=== PATIENT | male | born 1930 | race Caucasian/White ===

== ENCOUNTER 2017-04-02 22:23 | Emergency (ER) | payer MEDICARE ==
--- OUTSIDE RECORDS SUMMARY | 2017-04-02 22:41 | XMS REPORT ---
:1930 External Reference #:[id number] Author Organization [facility] Address [address] [address] Phone [phone] Care Team Providers Name Role Phone Ced Brian MD Primary Care Physician Unavailable Payers Type Date Identification Numbers Payment Provider Subscriber Medicare Primary Effective: Policy Number: Medicare Russ Morrison 1995 [id number] PayID: [id number] [address] [place] [address] Medigap Part B Effective: Policy Number: [facility] Russ Carlson 2012 [id number] [facility] PayID: [id number] [address] [place] [address] Medigap Part B Effective: 2005 Policy Number: [facility] Russ Morrison [id number] Expires: 2012 PayID: [id number] [address] [address] [place] [address] Problems Date Description Provider Status Onset: 10/23/2016 Atrial flutter Mahin Sandoval M.D.,FACP Onset: 06/13/2009 Malignant melanoma of skin Halima Tidwell M.D. Active Onset: 06/25/2009 Chronic ischemic heart disease Halima Tidwell M.D. Active Onset: 06/25/2009 Late effects of cerebrovascular Halima Tidwell M.D. 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 AMRIT Aguayo Note: RT hemiparesis Family History Date Family Member(s) Problem(s) Comments Father due to Heart Disease () : (age 90 Years) Mother due to Natural Causes Siblings 1 Siblings 1 none now First Brother due to Suicide () : (1963) Second Brother due to Suicide Social History Type Date Description Comments Marital Status Lives With Daughter Occupation Retired Cigarette Use Former Cigarette Smoker ETOH Use Consumes 1 glass of wine per day Smoking Patient is a former smoker smoke cigarettes for 25 years, 1-1 1/2 ppd and quit August 31, 1979 Recreational Drug Use Denies Drug Use Daily Caffeine Consumes on average 2 cups of 2 in the morning 1 in the regular coffee per day evening Exercise Type/Frequency Does not exercise General Hx Text 2 daughters - one in town, retired from [employer], quit tobacco in 1979 (30 pk yr hx). Daughter is health care proxy. Allergies, Adverse Reactions, Alerts Date Description Reaction Status Severity Comments 01/23/2009 Antivert syncope active 12/13/2007 NKDA inactive Medications Medication Date Status Form Strength Qnty SIG Indications Ordering Provider Salud 10/23/ Active Tablets 2.5mg 60tab 1 tablet by I48.4 Js Aj s mouth twice DMarlon Brand, a day. M.D. blood thinner. Doxazosin 12/22/ Active Tablets 4mg 30tab 1 by mouth Ced Mesylate 2015 s every day Joanie Brian M.D.,FACP Finasteride 08/31/ Active Tablets 5mg 1 by mouth Other 2014 every day Ordering Provider Micky M2Emily 06/01/ Active Tablets ER 20Meq 90tab 1 by mouth Ced 2014 s every day Joanie Brian M.D.,FACP Ergocalciferol 03/06/ Active Capsules [id number] 12cap 1 cap by Alyssa Carrera 2012 s mouth every Joanie Brian, week M.D.,FACP Simvastatin 08/17/ Active Tablets 40mg 90tab 1 by mouth E78.5 Ced 2012 s every night Joanie Brian, at bedtime Ethel.Joanie,FACP Ramipril 06/22/ Active Capsules 10mg 180ca take 1 [id number] ps capsule Pachikara twice a day , M.DMarlon Furosemide 10/20/ Active Tablets 40mg 90tab take 1 Ced 2010 s tablet Joanie Brian, daily M.D.,FACP Lupron Depot 04/16/ Active Kit 7.5mg Im q4 mon Ced 2010 Joanie Brian M.D.,FACP Vitamin C 04/16/ Active Chewtabs 500mg 60uni 1 po qd Ced 2010 ts Joanie Brian M.D.,FACP Famotidine 12/12/ Active Tablets 20mg 180ta take 1 Ced 2007 bs tablet Joanie Brian, twice a day M.D.,FACP Aspirin / Active Tablets 81mg 30tab 1 PO qd Stevanovi 0000 Sharda carter M.D. Flomax / Active Caps ER 0.4mg 90cap 1 PO qd Stevanovi 0000 24HR Sharda carter M.D. Metoprolol / Active Tablets 100mg 180ta take 1 Ced Tartrate bs tablet Joanie Brian, twice a day M.D.,FACP Bicalutamide / Active Tablets 50mg 1 daily Unknown 0000 Docusate Sodium / Active Capsules 100mg 1 by mouth Unknown 0000 twice a day Nilandron / Active Tablets 150mg 2 tabs Unknown 0000 daily Cephalexin 12/11/ Hx Capsules 500mg 21cap three times Ced 2017 - s a day by Joanie Brian, 12/18/ mouth M.D.,FACP 2016 Cetirizine HCL 01/04/ Hx Tablets 10mg 30tab 1 by mouth J06.9 Jude 2015 - s every day Amharic, 01/18/ until [employer] PLAYER 2014 feeling better Ventavis 08/02/ Hx Solution 20mcg/ML 465.8 Pedro 2014 - PEDRO Santiago 2014 Ventolin HFA 08/02/ Hx Aerosol 108(90Bas 54uni inhale two Pedro 2014 - ) ts puffs by PEDRO Santiago 11/13/ mcg/Act mouth four 2016 times a day as needed Zithromax Z-Clinton 08/01/ Hx Tablets 250mg 1tabs 2 tabs 465.8 Pedro 2014 - and PEDRO Santiago 01/04/ one tab 2015 each day therafter. 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 Doxazosin 04/23/ Hx Tablets 4mg 30tab 1 by mouth Jude Mesylate 2015 - s every day Amharic, 11/13/ B[employer]ER 2016 Clopidogrel 11/13/ Hx Tablets 75mg 90tab take 1 Ced Reddyate 2013 - s tablet Joanie Brian, 11/02/ daily M.D.,FACP 2016 Clopidogrel 11/13/ Hx Tablets 75mg 90tab Take 1 Ced 2013 - s Tablet Joanie Brian, 04/23/ Daily M.D.,FACP 2014 Clopidogrel 05/10/ Hx Tablets 75mg 90tab Take 1 Ced 2012 - s Tablet Joanie Brian, 11/13/ Daily M.D.,FACP 2014 Ergocalciferol 03/12/ Hx Capsules [id number] 12cap po q1wk 268.9 Alyssa Carrera 2010 - s Joanie Brian, 06/29/ M.D.,FACP 2014 Cephalexin 01/12/ Hx Tablets 500mg 21tab po tid 682.6 Ced 2010 - s Joanie Brian, M.D.,FACP 2010 Ergocalciferol 11/06/ Hx Capsules [id number] 12cap po q1wk for 268.9 Ced 2010 - s 2 mon then Joanie Brian, 03/12/ 2x/mon M.D.,FACP 2010 Amoxicillin/Clav 02/17/ Hx Tablets 875-125mg 20tab 1 po bid 706.2 Nahid albafernando 2009 - s Pachikara Potassium 04/16/ , M.D. 2010 Altace 10/21/ Hx Capsules 10mg 180ca po bid Ced 2009 - ps Joanie Brian, 06/22/ M.D.,FACP 2011 Vytorin 10/21/ Hx Tablets 10-40mg 90tab Take 1 272.4 Ced 2009 - s Tablet At Joanie Brian, 08/17/ Bedtime M.D.,FACP 2012 Zocor 08/02/ Hx Tablets 40mg 90tab 1 po qd 272.4 Stevanovi 2009 s c, 10/21/ omir, 2009 M.D. Lovastatin 04/04/ Hx Tablets 20mg 90tab 1 tab po Thananart 2007 - qhs , Naheed, 08/02/ M.D. 2009 Cephalexin 02/06/ Hx Capsules 500mg 40cap 1 qid x 10 706.2 Ced 2007 - s fabiana Brian, 02/20/ M.D.,FACP 2007 Lasix 11/09/ Hx Tablets 40mg 90tab 1 PO qd Ced 2007 - s Joanie Brian, 10/20/ M.D.,FACP 2010 Lovastatin / Hx Tablets 40mg 90tab 1 PO QHS Stevanovi - s c, 08/02/ omir, 2009 M.D. Docusate Sodium / Hx Capsules 100mg 60cap 1 PO qd Unknown - s 2009 Lovastatin / Hx Tablets 40mg 60tab 1 PO QHS Unknown 0000 - s 2007 Vit C / Hx Tablets 500mg, 30tab 1 PO qd Stevanovi - s c, 04/16/ Radomir, 2010 M.D. Zetia / Hx Tablets 10mg 90tab 1 PO qd Stevanovi 0000 - s c, 10/21/ Radomir, 2009 M.D. Altace / Hx Capsules 5mg 360ca 2 caps PO Stevanovi 0000 - ps bid c, 10/21/ Radomir, 2009 M.D. Colace / Hx Capsules 50mg 1 po qd Stevanovi 0000 - c, 12/13/ Radomir, 2012 M.D. Plavix / Hx Tablets 75mg 90tab Take 1 Ced 0000 - s Tablet Joanie Brian, 05/10/ Daily Olivier,FACP 2012 Klor-Con / Hx Packet 20Meq 90uni mix and Thomas Lopez 0000 - ts drink 1 Zakia, 05/16/ packet Olivier 2014 daily Doxazosin / Hx Tablets 4mg 1 by mouth Unknown Mesylate 0000 - every day 2014 Immunizations CPT Code Status Date Vaccine Lot # [id number] Given 03/09/2017 Influenza Virus Vaccine, Quadrivalent, Split, [id number] Preservative Free 18165 Given 01/05/2017 Influenza Virus Vaccine, Quadrivalent, Split, [id number] Preservative Free Q2038 Given 04/27/2016 Fluzone Vaccine [id number] Given 11/14/2015 Pneumococcal Conjugate Vaccine 13 Valent For [id number] Intramuscular Use Q2037 Given 04/06/2015 Fluvirin Im 3Yrs And Older 01324 Given 01/26/2014 Flu Vaccine Split Virus Preservative Free For [id number] Indiv 3Yr Older Q2038 Given 04/20/2013 Fluzone Vaccine Q2037 Given 03/03/2012 Fluvirin Im 3Yrs And Older [id number] 49214 Given 11/05/2011 Tdap - Tetanus/Diptheria/Acellular Pertussis [id number] Q2038 Given 01/09/2011 Fluzone Vaccine 64827 Given 01/09/2011 Influenza Virus 3Yrs & Over [id number] 11656 Given 01/12/2010 Influenza Virus 3Yrs & Over 22396 Given 01/23/2009 Influenza Virus 3Yrs & Over [id number] 51916 Given 01/31/2004 Pneumonia Vaccine Vital Signs Date Vital Result Comment 03/09/2017 Heart Rate 109 /min BP Systolic Sitting 118 mmHg BP Diastolic Sitting 70 mmHg Body Temperature 97.8 F O2 % BldC Oximetry 97 % 01/05/2017 Height 70 inches 5'10" Weight 200.00 lb Heart Rate 56 /min BP Systolic Sitting 118 mmHg BP Diastolic Sitting 62 mmHg Body Temperature 97.3 F O2 % BldC Oximetry 96 % BMI (Body Mass Index) 28.7 kg/m2 12/23/2016 Height 69.75 inches 5'9.75" Weight 210.00 lb per pt Heart Rate 64 /min BP Systolic Sitting 112 mmHg Lue reg cuff BP Diastolic Sitting 66 mmHg Lue reg cuff Respiratory Rate 16 /min BMI (Body Mass Index) 30.3 kg/m2 Ejection Fraction 45-50% 11/18/2016-echo 12/11/2016 Heart Rate 105 /min BP Systolic Sitting 110 mmHg BP Diastolic Sitting 60 mmHg Body Temperature 96.0 F O2 % BldC Oximetry 95 % 10/23/2016 Height 69.75 inches 5'9.75" Weight 210.00 lb per pt Heart Rate 64 /min BP Systolic Sitting 100 mmHg Lue reg cuff BP Diastolic Sitting 66 mmHg Lue reg cuff Respiratory Rate 17 /min BMI (Body Mass Index) 30.3 kg/m2 Ejection Fraction 40-45% 01/13/2009-echo 11/14/2015 Height 69.75 inches 5'9.75" Weight 224.00 lb Heart Rate 70 /min BP Systolic Sitting 125 mmHg BP Diastolic Sitting 70 mmHg Body Temperature 98.7 F O2 % BldC Oximetry 95 % BMI (Body Mass Index) 32.4 kg/m2 10/25/2015 Height 69.75 inches 5'9.75" Weight 225.00 lb taken 10/10/15 Heart Rate 62 /min BP Systolic Sitting 120 mmHg LA reg cuff BP Diastolic Sitting 74 mmHg LA reg cuff Respiratory Rate 18 /min BMI (Body Mass Index) 32.5 kg/m2 Ejection Fraction 40-45% Echo 01/13/09 01/04/2015 Height 69.75 inches 5'9.75" Weight 222.50 lb Heart Rate 56 /min BP Systolic Sitting 120 mmHg BP Diastolic Sitting 66 mmHg Body Temperature 96.9 F O2 % BldC Oximetry 96 % BMI (Body Mass Index) 32.2 kg/m2 09/28/2014 Height 69.75 inches 5'9.75" Weight 217.00 lb with shoes Heart Rate 62 /min reg BP Systolic Sitting 128 mmHg LA reg cuff BP Diastolic Sitting 70 mmHg LA reg cuff Respiratory Rate 16 /min BMI (Body Mass Index) 31.4 kg/m2 08/01/2014 Height 69.75 inches 5'9.75" Heart Rate 68 /min BP Systolic Sitting 110 mmHg BP Diastolic Sitting 58 mmHg Body Temperature 97.9 F O2 % BldC Oximetry 95 % 03/16/2014 Height 69.75 inches 5'9.75" Weight 218.00 lb Heart Rate 64 /min BP Systolic Sitting 116 mmHg BP Diastolic Sitting 68 mmHg BMI (Body Mass Index) 31.5 kg/m2 08/03/2013 Weight 214.00 lb Heart Rate 68 /min BP Systolic Sitting 112 mmHg LA large cuff BP Diastolic Sitting 80 mmHg LA large cuff BP Systolic Standing 108 mmHg LA BP Diastolic Standing 74 mmHg LA Respiratory Rate 18 /min 06/29/2013 Weight 214.00 lb Heart Rate 68 /min BP Systolic Sitting 118 mmHg BP Diastolic Sitting 72 mmHg 12/13/2012 Height 70 inches 5'10" Weight 216.00 lb Heart Rate 60 /min BP Systolic Sitting 108 mmHg BP Diastolic Sitting 64 mmHg BMI (Body Mass Index) 31.0 kg/m2 05/10/2012 Height 69.75 inches 5'9.75" Weight 208.25 lb Heart Rate 56 /min BP Systolic Sitting 118 mmHg BP Diastolic Sitting 74 mmHg BMI (Body Mass Index) 30.1 kg/m2 03/03/2012 Height 70 inches 5'10" Weight 212.00 lb Heart Rate 70 /min BP Systolic Sitting 110 mmHg BP Diastolic Sitting 80 mmHg BMI (Body Mass Index) 30.4 kg/m2 11/05/2011 Height 70 inches 5'10" Weight 211.00 lb BP Systolic Sitting 110 mmHg BP Diastolic Sitting 76 mmHg Body Temperature 96.5 F rt ear BMI (Body Mass Index) 30.3 kg/m2 05/07/2011 Height 70 inches 5'10" Weight 215.00 lb Heart Rate 64 /min BP Systolic Sitting 98 mmHg BP Diastolic Sitting 62 mmHg BMI (Body Mass Index) 30.8 kg/m2 01/21/2011 Weight 227.00 lb Heart Rate 66 /min BP Systolic Sitting 140 mmHg BP Diastolic Sitting 82 mmHg 01/12/2011 Height 68.5 inches 5'8.50" Weight 225.50 lb Heart Rate 72 /min BP Systolic Sitting 108 mmHg BP Diastolic Sitting 66 mmHg BMI (Body Mass Index) 33.8 kg/m2 11/06/2010 Height 69 inches 5'9" Heart Rate 76 /min BP Systolic Sitting 118 mmHg BP Diastolic Sitting 64 mmHg 10/15/2010 Height 69 inches 5'9" Weight 225.00 lb Heart Rate 66 /min BP Systolic Sitting 122 mmHg BP Diastolic Sitting 78 mmHg BMI (Body Mass Index) 33.2 kg/m2 04/16/2010 Weight 220.00 lb Heart Rate 60 /min BP Systolic Sitting 112 mmHg BP Diastolic Sitting 66 mmHg 02/17/2010 Weight 217.00 lb Heart Rate 64 /min BP Systolic Sitting 140 mmHg BP Diastolic Sitting 80 mmHg 10/21/2009 Heart Rate 72 /min BP Systolic Sitting 124 mmHg BP Diastolic Sitting 80 mmHg 08/28/2009 Heart Rate 54 /min BP Systolic Sitting 110 mmHg BP Diastolic Sitting 80 mmHg 08/02/2009 Weight 222.00 lb Heart Rate 70 /min BP Systolic 126 mmHg BP Diastolic 70 mmHg 07/02/2009 Weight 219.00 lb Heart Rate 60 /min BP Systolic Sitting 134 mmHg BP Diastolic Sitting 88 mmHg 01/23/2009 Weight 222.00 lb Heart Rate 62 /min BP Systolic Sitting 122 mmHg BP Diastolic Sitting 64 mmHg 12/24/2008 Weight 220.00 lb Heart Rate 84 /min BP Systolic Sitting 140 mmHg BP Diastolic Sitting 76 mmHg 09/20/2008 Weight 221.00 lb Heart Rate 64 /min BP Systolic Sitting 110 mmHg BP Diastolic Sitting 62 mmHg 06/19/2008 Height 71 inches 5'11" Heart Rate 60 /min BP Systolic Sitting 108 mmHg BP Diastolic Sitting 64 mmHg 03/15/2008 Height 71 inches 5'11" Weight 235.00 lb Heart Rate 60 /min BP Systolic Sitting 130 mmHg BP Diastolic Sitting 72 mmHg BMI (Body Mass Index) 32.8 kg/m2 02/21/2008 Height 71 inches 5'11" Weight 122.25 lb Heart Rate 72 /min BMI (Body Mass Index) 17.0 kg/m2 02/07/2008 Height 71 inches 5'11" Heart Rate 72 /min BP Systolic Sitting 118 mmHg BP Diastolic Sitting 70 mmHg 12/13/2007 Height 71 inches 5'11" Weight 239.00 lb Heart Rate 68 /min BP Systolic Sitting 126 mmHg BP Diastolic Sitting 78 mmHg BMI (Body Mass Index) 33.3 kg/m2 Results Test Date Test Result H/L Range Note Laboratory test finding 03/09/2017 TSH (Thyroid Stim <pending> Horm) PSA Diagnostic <pending> Testosterone Total <pending> CBC Auto Diff 12/22/2016 White Blood Count 6.7 10^3/uL 3.5-10.8 Red Blood Count 3.73 10^6/uL Low 4.0-5.4 Hemoglobin 11.8 g/dL Low 14.0-18.0 Hematocrit 35 % Low 42-52 Mean Corpuscular Volume 94 fL 80-94 Mean Corpuscular Hemoglobin 32 pg High 27-31 Mean Corpuscular HGB Conc 34 g/dL 31-36 Red Cell Distribution Width 14 % 10.5-15 Platelet Count 159 10^3/uL 150-450 Mean Platelet Volume 8 um3 7.4-10.4 Abs Neutrophils 3.8 10^3/uL 1.5-7.7 Abs Lymphocytes 1.5 10^3/uL 1.0-4.8 Abs Monocytes 0.9 10^3/uL High 0-0.8 Abs Eosinophils 0.4 10^3/uL 0-0.6 Abs Basophils 0 10^3/uL 0-0.2 Abs Nucleated RBC 0.01 10^3/uL Granulocyte % 57.2 % 38-83 Lymphocyte % 22.3 % Low 25-47 Monocyte % 13.7 % High 1-9 Eosinophil % 6.3 % High 0-6 Basophil % 0.5 % 0-2 Nucleated Red Blood Cells % 0.1 Laboratory test finding 12/22/2016 Testosterone Total 10.21 ng/dL Low 240- 950 PSA Screening 29.517 ng/mL High 0-4.000 1 Basic Metabolic Panel 12/22/2016 Sodium 139 mmol/L 133-145 Potassium 4.1 mmol/L 3.5-5.0 Chloride 107 mmol/L 101-111 Co2 Carbon Dioxide 25 mmol/L 22-32 Anion Gap 7 mmol/L 2-11 Glucose 95 mg/dL 70-100 Blood Urea Nitrogen 18 mg/dL 6-24 Creatinine 1.03 mg/dL 0.67-1.17 BUN/Creatinine Ratio 17.5 8-20 Calcium 10.1 mg/dL 8.6-10.3 Egfr Non- 68.5 >60 Egfr 88.1 >60 2 Lipid Profile (Trig/Chol/HDL) 12/22/2016 Triglycerides 126 mg/dL 3 Cholesterol 122 mg/dL 4 HDL Cholesterol 35.7 mg/dL 5 LDL Cholesterol 61 mg/dL 6 Laboratory test finding 04/14/2016 Vitamin D Total 25(Oh) 45.3 ng/mL 30- 50 7, 8 CBC No Diff 04/14/2016 White Blood Count 6.2 10^3/uL 3.5-10.8 7 Red Blood Count 3.38 10^6/uL Low 4.0-5.4 7 Hemoglobin 10.6 g/dL Low 14.0-18.0 7 Hematocrit 32 % Low 42-52 7 Mean Corpuscular Volume 94 fL 80-94 7 Mean Corpuscular Hemoglobin 31 pg 27-31 7 Mean Corpuscular HGB Conc 33 g/dL 31-36 7 Red Cell Distribution Width 14 % 10.5-15 7 Platelet Count 148 10^3/uL Low 150-450 7 Mean Platelet Volume 8 um3 7.4-10.4 7 Basic Metabolic Panel 04/14/2016 Sodium 139 mmol/L 133-145 7 Potassium 4.1 mmol/L 3.5-5.0 7 Chloride 109 mmol/L 101-111 7 Co2 Carbon Dioxide 24 mmol/L 22-32 7 Anion Gap 6 mmol/L 2-11 7 Glucose 106 mg/dL High 70-100 7 Blood Urea Nitrogen 20 mg/dL 6-24 7 Creatinine 1.03 mg/dL 0.67-1.17 7 BUN/Creatinine Ratio 19.4 8-20 7 Calcium 9.6 mg/dL 8.6-10.3 7 Egfr Non- 68.5 >60 7 Egfr 88.1 >60 7, 9 Laboratory test 04/14/2016 Testosterone Total < 10.00 ng/dL Low 240- 950 7, 10 finding PSA Diagnostic 5.430 ng/mL High 0-4.0 7, 11 Laboratory test finding 12/20/2015 Testosterone Total 14.89 ng/dL Low 240- 950 12, 13 PSA Diagnostic 5.131 ng/mL High 0-4.0 12, 14 Basic Metabolic Panel 12/20/2015 Sodium 138 mmol/L 133-145 12 Potassium 4.4 mmol/L 3.5-5.0 12 Chloride 105 mmol/L 101-111 12 Co2 Carbon Dioxide 26 mmol/L 22-32 12 Anion Gap 7 mmol/L 2-11 12 Glucose 100 mg/dL 70-100 12 Blood Urea Nitrogen 15 mg/dL 6-24 12 Creatinine 0.93 mg/dL 0.67-1.17 12 BUN/Creatinine Ratio 16.1 8-20 12 Calcium 9.7 mg/dL 8.6-10.3 12 Egfr Non- 77.2 >60 12 Egfr 99.3 >60 12, 15 Lipid Profile (Trig/Chol/HDL) 11/12/2015 Triglycerides 142 mg/dL 16, 17 Cholesterol 149 mg/dL 16, 18 HDL Cholesterol 40.3 mg/dL 16, 19 LDL Cholesterol 80 mg/dL 16, 20 Laboratory test finding 09/24/2015 PSA Screening 4.974 ng/mL High 0-4.000 21 Comp Metabolic Panel 08/15/2015 Sodium 138 mmol/L 133-145 22 Potassium 4.1 mmol/L 3.5-5.0 22 Chloride 105 mmol/L 101-111 22 Co2 Carbon Dioxide 27 mmol/L 22-32 22 Anion Gap 6 mmol/L 2-11 22 Glucose 122 mg/dL High 70-100 22 Blood Urea Nitrogen 20 mg/dL 6-24 22 Creatinine 0.96 mg/dL 0.67-1.17 22 BUN/Creatinine Ratio 20.8 High 8-20 22 Calcium 10.1 mg/dL 8.6-10.3 22 Total Protein 6.5 g/dL 6.4-8.9 22 Albumin 4.0 g/dL 3.2-5.2 22 Globulin 2.5 g/dL 2-4 22 Albumin/Globulin Ratio 1.6 1-3 22 Total Bilirubin 0.40 mg/dL 0.2-1.0 22 Alkaline Phosphatase 59 U/L 34-104 22 Alt 11 U/L 7-52 22 Ast 14 U/L 13-39 22 Egfr Non- 74.4 >60 22 Egfr 95.7 >60 22, 23 Laboratory test finding 08/15/2015 PSA Diagnostic 6.080 ng/mL High 0-4.0 22, 24 CBC Auto Diff 08/15/2015 White Blood Count 5.9 10^3/uL 3.5-10.8 22 Red Blood Count 4.21 10^6/uL 4.0-5.4 22 Hemoglobin 13.3 g/dL Low 14.0-18.0 22 Hematocrit 41 % Low 42-52 22 Mean Corpuscular Volume 97 fL High 80-94 22 Mean Corpuscular Hemoglobin 32 pg High 27-31 22 Mean Corpuscular HGB Conc 33 g/dL 31-36 22 Red Cell Distribution Width 14 % 10.5-15 22 Platelet Count 147 10^3/uL Low 150-450 22 Mean Platelet Volume 9 um3 7.4-10.4 22 Abs Neutrophils 3.3 10^3/uL 1.5-7.7 22 Abs Lymphocytes 1.4 10^3/uL 1.0-4.8 22 Abs Monocytes 0.8 10^3/uL 0-0.8 22 Abs Eosinophils 0.4 10^3/uL 0-0.6 22 Abs Basophils 0 10^3/uL 0-0.2 22 Abs Nucleated RBC 0 10^3/uL 22 Granulocyte % 55.9 % 38-83 22 Lymphocyte % 24.2 % Low 25-47 22 Monocyte % 13.0 % High 1-9 22 Eosinophil % 6.4 % High 0-6 22 Basophil % 0.5 % 0-2 22 Nucleated Red Blood Cells % 0.1 22 Laboratory test finding 02/26/2015 PSA Diagnostic 3.182 ng/mL 0-4.0 25 Laboratory test finding 07/03/2014 PSA Diagnostic 1.036 ng/mL 0-4.0 26 CMP Panel 03/12/2014 Sodium 138 mmol/L 133-145 Potassium 4.1 mmol/L 3.5-5.0 Chloride 108 mmol/L 101-111 Co2 Carbon Dioxide 26 mmol/L 22-32 Anion Gap 4 mmol/L 2-11 Glucose 110 mg/dL High 70-100 Blood Urea Nitrogen 22 mg/dL 6-24 Creatinine 0.99 mg/dL 0.67-1.17 BUN/Creatinine Ratio 22.2 High 8-20 Calcium 9.5 mg/dL 8.6-10.3 Total Protein 5.4 g/dL Low 6.4-8.9 Albumin 3.4 g/dL 3.2-5.2 Globulin 2.0 g/dL 2-4 Albumin/Globulin Ratio 1.7 1-3 Total Bilirubin 0.30 mg/dL 0.2-1.0 Alkaline Phosphatase 43 U/L 34-104 Alt 9 U/L 7-52 Ast 10 U/L Low 13-39 Egfr Non- 72.2 >60 Egfr 92.8 >60 27 Vitamin D,25 Hydroxy 03/12/2014 25-Hydroxy Vitamin D2 44 ng/mL 25-Hydroxy Vitamin D3 3.3 ng/mL 25-Hydroxy Vitamin D Total 47 ng/mL 28 Lipid Panel 03/12/2014 Triglycerides 138 mg/dL 29 Cholesterol 121 mg/dL 30 HDL Cholesterol 31.4 mg/dL 31 LDL Cholesterol 62 mg/dL 32 Laboratory test finding 03/07/2014 PSA Diagnostic 6.032 ng/mL High 0-4.0 33 Vitamin D, 25 Hydroxy 06/20/2013 25-Hydroxy Vitamin D2 45 ng/mL 25-Hydroxy Vitamin D3 3.2 ng/mL 25-Hydroxy Vitamin D Total 48 ng/mL 34 Comp Metabolic Panel 06/20/2013 Sodium 140 mmol/L 133-145 Potassium 4.0 mmol/L 3.7-5.6 Chloride 107 mmol/L 101-111 Co2 Carbon Dioxide 27 mmol/L 22-32 Anion Gap 6 mmol/L 2-11 Glucose 116 mg/dL High 70-100 Blood Urea Nitrogen 27 mg/dL High 6-24 Creatinine 1.02 mg/dL 0.67-1.17 BUN/Creatinine Ratio 26.5 High 8-20 Calcium 10.4 mg/dL High 8.6-10.3 Total Protein 6.4 g/dL 6.4-8.9 Albumin 4.0 g/dL 3.2-5.2 Globulin 2.4 g/dL 2-4 Albumin/Globulin Ratio 1.7 1-3 Total Bilirubin 0.40 mg/dL 0.2-1.0 Alkaline Phosphatase 52 U/L 34-104 Alt 11 U/L 7-52 Ast 12 U/L Low 13-39 Egfr Non- 69.7 >60 Egfr 89.7 >60 35 Lipid Profile (Trig/Chol/HDL) 06/20/2013 Triglycerides 188 mg/dL 36 Cholesterol 162 mg/dL 37 HDL Cholesterol 38.7 mg/dL 38 LDL Cholesterol 86 mg/dL 39 Laboratory test finding 06/20/2013 Creatine Kinase 22 U/L 10-223 Comp Metabolic Panel 12/13/2012 Sodium 140 mmol/L 133-145 Potassium 3.9 mmol/L 3.5-5.0 Chloride 107 mmol/L 101-111 Co2 Carbon Dioxide 25.0 mmol/L 22-32 Anion Gap 8.0 mmol/L 2-11 Glucose 113 mg/dL High 70-100 Blood Urea Nitrogen 15 mg/dL 6-24 Creatinine 1.00 mg/dL 0.50-1.40 BUN/Creatinine Ratio 15.0 8-20 Calcium 10.2 mg/dL High 8.1-9.9 Total Protein 5.8 g/dL Low 6.2-8.1 Albumin 3.7 g/dL 3.2-5.2 Globulin 2.1 g/dL 2-4 Albumin/Globulin Ratio 1.8 1-3 Total Bilirubin 0.7 mg/dL 0.4-1.5 Alkaline Phosphatase 57 U/L 30-110 Alt 15 U/L 14-54 Ast 18 U/L 12-42 Egfr Non- 71.5 >60 Egfr 92.0 >60 40 Lipid Profile (Trig/Chol/HDL) 12/13/2012 Triglycerides 147 mg/dL 40-200 Cholesterol 160 mg/dL Less than 200 HDL Cholesterol 41 mg/dL 40-60 41 Cholesterol/HDL Ratio 3.9 Average 1-4.44 LDL Cholesterol 89.6 Less Than 100 42 Laboratory test finding 11/03/2012 PSA Diagnostic 2.12 ng/mL 0-4.0 43 Laboratory test finding 07/12/2012 PSA Diagnostic 1.00 ng/mL 0-4.0 44 Laboratory test finding 05/17/2012 PSA Screening 1.67 ng/mL 0-4.0 45 Vitamin D, 25 Hydroxy 05/13/2012 25-Hydroxy Vitamin D2 42 ng/mL 25-Hydroxy Vitamin D3 <2.0 ng/mL 25-Hydroxy Vitamin D Total 42 ng/mL 46 Basic Metabolic Panel 05/13/2012 Sodium 140 mmol/L 133-145 Potassium 4.2 mmol/L 3.5-5.0 Chloride 107 mmol/L 101-111 Co2 Carbon Dioxide 24.0 mmol/L 22-32 Anion Gap 9.0 mmol/L 2-11 Glucose 120 mg/dL High 70-100 Blood Urea Nitrogen 20 mg/dL 6-24 Creatinine 1.00 mg/dL 0.50-1.40 BUN/Creatinine Ratio 20.0 8-20 Calcium 11.0 mg/dL High 8.1-9.9 Egfr Non- 71.5 >60 Egfr 92.0 >60 47 Comp Metabolic Panel 02/17/2012 Sodium 140 mmol/L 133-145 Potassium 3.9 mmol/L 3.5-5.0 Chloride 107 mmol/L 101-111 Co2 Carbon Dioxide 26.0 mmol/L 22-32 Anion Gap 7.0 mmol/L 2-11 Glucose 117 mg/dL High 70-100 Blood Urea Nitrogen 21 mg/dL 6-24 Creatinine 0.90 mg/dL 0.50-1.40 BUN/Creatinine Ratio 23.3 High 8-20 Calcium 10.1 mg/dL High 8.1-9.9 Total Protein 6.9 GM/DL 6.2-8.1 Albumin 3.8 GM/DL 3.2-5.2 Globulin 3.1 GM/DL 2-4 Albumin/Globulin Ratio 1.2 1-3 Total Bilirubin 0.9 mg/dL 0.1-1.0 48 Alkaline Phosphatase 52 U/L 30-110 Alt 19 U/L 14-54 Ast 19 U/L 12-42 Egfr Non- 81.0 >60 Egfr 104.2 >60 49 Laboratory test finding 02/17/2012 Troponin I 0 ng/mL 0-0.06 50 C Reactive Protein < 0.5 mg/dL Less Than 0.5 Laboratory test finding 02/17/2012 Inr 0.94 0.82-1.17 51 Activated Partial Thrombo Time 20.7 Sec Low 22.18-37.18 52 CBC Auto Diff 02/17/2012 White Blood Count 9.3 10^3/uL 4.8-10.8 Red Blood Count 4.55 10^6/uL 4.0-5.4 Hemoglobin 14.2 g/dL 14.0-18.0 Hematocrit 43 % 42-52 Mean Corpuscular Volume 94 fL 80-94 Mean Corpuscular Hemoglobin 31 pg 27-31 Mean Corpuscular HGB Conc 33 g/dL 31-36 Red Cell Distribution Width 14 % 10.5-15 Platelet Count (SEE NOTE) 10^3/uL 150-450 53 Abs Neutrophils 5.2 10^3/uL 1.5-7.7 Abs Lymphocytes 2.5 10^3/uL 1.0-4.8 Abs Monocytes 1.1 10^3/uL High 0-0.8 Abs Eosinophils 0.5 10^3/uL 0-0.6 Abs Basophils 0.1 10^3/uL 0-0.2 Abs Nucleated RBC 0.01 10^3/uL Granulocyte % 55.4 % 38-83 Lymphocyte % 26.4 % 25-47 Monocyte % 11.6 % High 1-9 Eosinophil % 5.3 % 0-6 Basophil % 1.3 % 0-2 Nucleated Red Blood Cells % 0.1 Laboratory test finding 02/17/2012 Erythrocyte Sed Rate 13 MM/HR 0-40 Vitamin D, 25 Hydroxy 07/21/2011 25-Hydroxy Vitamin D2 35 ng/mL () 25-Hydroxy Vitamin D3 2.9 ng/mL () 25-Hydroxy Vitamin D Total 38 ng/mL () 54 Lipid Panel - [facility] 07/21/2011 CPK (Creatine Kinase) 29 U/L 0-200 Comp Metabolic Panel 07/21/2011 Sodium 139 mmol/L 135-145 Potassium 4.3 mmol/L 3.5-5.0 Chloride 107 mmol/L 101-111 Co2 (Carbon Dioxide) 24.0 mmol/L 22-32 Anion Gap 8.0 mmol/L 2-11 55 Glucose 110 mg/dL High 70-100 BUN 21 mg/dL 6-24 Creatinine 0.9 mg/dL 0.50-1.40 One Over Creatinine 1.11 BUN/Creatinine Ratio 23.3 High 8-20 Calcium 10.5 mg/dL High 8.1-9.9 Total Protein 6.3 GM/DL 6.2-8.1 Albumin 3.7 GM/DL 3.2-5.2 Globulin 2.6 GM/DL 2-4 Albumin/Globulin Ratio 1.4 1-3 Bilirubin Total 0.8 mg/dL 0.4-1.5 56 Alkaline Phosphatase 52 U/L 39-117 Alt (SGPT) 18 U/L 17-63 Ast (Sgot) 18 U/L 12-42 eGFR Non- 81.0 > 60 eGFR 104.2 > 60 57 Lipid Profile (Trig/Chol/HDL) 07/21/2011 Triglyceride 152 mg/dL 40-200 Cholesterol 133 mg/dL Less Than 200 58 High Density Lipoprotein 38 mg/dL Low 40-60 59 Cholesterol/HDL Ratio 3.50 AVERAGE 1-4.97 Low Density Lipoprotein 65 mg/dL Less Than 100 60 Vitamin D, 25 Hydroxy 03/10/2011 25-Hydroxy Vitamin D2 33 ng/mL () 25-Hydroxy Vitamin D3 3.6 ng/mL () 25-Hydroxy Vitamin D Total 37 ng/mL () 61 Basic Metabolic Panel 03/10/2011 Sodium 137 mmol/L 135-145 Potassium 4.1 mmol/L 3.5-5.0 Chloride 106 mmol/L 101-111 Co2 (Carbon Dioxide) 23.0 mmol/L 22-32 Anion Gap 8.0 mmol/L 2-11 62 Glucose 137 mg/dL High 70-100 BUN 16 mg/dL 6-24 Creatinine 1.0 mg/dL 0.50-1.40 One Over Creatinine 1.00 BUN/Creatinine Ratio 16.0 8-20 Calcium 10.1 mg/dL High 8.1-9.9 eGFR Non- 71.9 > 60 eGFR 92.5 > 60 63 Basic Metabolic Panel 01/15/2011 Sodium 138 mmol/L 135-145 Potassium 4.1 mmol/L 3.5-5.0 Chloride 107 mmol/L 101-111 Co2 (Carbon Dioxide) 26.0 mmol/L 22-32 Anion Gap 5.0 mmol/L 2-11 64 Glucose 164 mg/dL High 70-100 BUN 15 mg/dL 6-24 Creatinine 0.8 mg/dL 0.50-1.40 One Over Creatinine 1.25 BUN/Creatinine Ratio 18.8 8-20 Calcium 10.0 mg/dL High 8.1-9.9 eGFR Non- 93.0 > 60 eGFR 119.6 > 60 65 Laboratory test finding 01/15/2011 Thyroxine Free 0.90 ng/dL 0.61-1.24 T3 Total 1.09 NG/ML 0.5-1.7 T3 Free 3.42 pg/mL 2.39-6.79 TSH 0.82 MIU/ML 0.34-5.60 Thyroperoxidase Antibody 0.7 IU/mL Less Than 9.0 Vitamin D, 25 Hydroxy 12/30/2010 25-Hydroxy Vitamin D2 18 ng/mL () 25-Hydroxy Vitamin D3 7.9 ng/mL () 25-Hydroxy Vitamin D Total 26 ng/mL () 66 PTH Intact, Inc Total Calcium 12/30/2010 PTH Intact 20.1 PMOL/L High 1.3- 9.3 Calcium For Pthi 9.8 mg/dL 8.1-9.9 67 PTH Intact, Inc Total Calcium 10/30/2010 PTH Intact 22.2 PMOL/L High 1.3- 9.3 Calcium For Pthi 10.5 mg/dL High 8.1-9.9 68 Vitamin D, 25 Hydroxy 10/30/2010 25-Hydroxy Vitamin D2 <4.0 ng/mL () 25-Hydroxy Vitamin D3 15 ng/mL () 25-Hydroxy Vitamin D Total 15 ng/mL () 69 Laboratory test finding 10/30/2010 Calcium Ionized 5.13 mg/dL 4.65-5.28 Basic Metabolic Panel 10/28/2010 Sodium 138 mmol/L 135-145 Potassium 4.0 mmol/L 3.5-5.0 Chloride 107 mmol/L 101-111 Co2 (Carbon Dioxide) 25.0 mmol/L 22-32 Anion Gap 6.0 mmol/L 2-11 70 Glucose 130 mg/dL High 70-100 BUN 17 mg/dL 6-24 Creatinine 0.90 mg/dL 0.50-1.40 One Over Creatinine 1.10 BUN/Creatinine Ratio 18.9 8-20 Calcium 10.4 mg/dL High 8.1-9.9 eGFR Non- 81.2 > 60 eGFR 104.4 > 60 71 Laboratory test 10/28/2010 Hemoglobin A1c 6.9 % High Less Than 6.0 72 finding Laboratory test 07/01/2010 PSA,Diagnostic 0.91 NG/ML 0-4 73 finding Lipid Panel - [facility] 02/18/2010 CPK (Creatine 25 U/L 0-200 Kinase) Comp Metabolic Panel 02/18/2010 Sodium 142 mmol/L 135-145 Potassium 4.2 mmol/L 3.5-5.0 Chloride 110 mmol/L 101-111 Co2 (Carbon Dioxide) 25.0 mmol/L 22-32 Anion Gap 7.0 mmol/L 2-11 74 Glucose 121 mg/dL High 70-100 75 BUN 20 mg/dL 6-24 Creatinine 1.00 mg/dL 0.50-1.40 One Over Creatinine 1.00 BUN/Creatinine Ratio 20.0 8-20 Calcium 10.2 mg/dL High 8.1-9.9 Total Protein 5.3 GM/DL Low 6.2-8.1 Albumin 3.6 GM/DL 3.2-5.2 Globulin 1.7 GM/DL Low 2-4 Albumin/Globulin Ratio 2.1 1-3 Bilirubin Total 0.7 mg/dL 0.4-1.5 76 Alkaline Phosphatase 50 U/L 39-117 Alt (SGPT) 19 U/L 17-63 Ast (Sgot) 18 U/L 12-42 eGFR Non- 76.6 > 60 eGFR 92.7 > 60 77 Lipid Profile (Trig/Chol/HDL) 02/18/2010 Triglyceride 168 mg/dL 40-200 Cholesterol 130 mg/dL Less Than 200 78 High Density Lipoprotein 31 mg/dL Low 40-60 79 Cholesterol/HDL Ratio 4.19 AVERAGE 1-4.97 Low Density Lipoprotein 65 mg/dL Less Than 100 80 Surgical 09/17/2009 Surgical Pathology 81 Pathology <SEE NOTE> Laboratory test 07/09/2009 PSA,Diagnostic 15.81 NG/ML High 0-4 82 finding Lipid Profile 07/09/2009 Triglyceride 195 mg/dL 40-200 (Trig/Chol/HDL) Cholesterol 125 mg/dL Less Than 200 83 High Density Lipoprotein 29 mg/dL Low 40-60 84 Cholesterol/HDL Ratio 4.31 AVERAGE 1-4.97 Low Density Lipoprotein 57 mg/dL Less Than 100 85 Surgical Pathology 06/20/2009 Surgical Pathology <SEE 86 NOTE> Surgical Pathology 06/04/2009 Surgical Pathology <SEE 87 NOTE> Liver Function 05/27/2009 Total Protein 6.4 GM/DL 6.2-8.1 Panel Albumin 3.7 GM/DL 3.2-5.2 Globulin 2.7 GM/DL 2-4 Albumin/Globulin Ratio 1.4 1-3 Bilirubin Total 0.8 mg/dL 0.4-1.5 88 Bilirubin Direct 0.1 mg/dL 0.1-0.5 Indirect Bilirubin 0.7 mg/dL 0.1-0.75 Alkaline Phosphatase 52 U/L 39-117 Alt (SGPT) 21 U/L 17-63 Ast (Sgot) 20 U/L 12-42 CBC With Electronic Diff 05/27/2009 White Blood Count 6.2 CUMM 4.8-10.8 Red Cell Count 4.96 CUMM 4.6-6.2 Hemoglobin 16.0 g/dL 14.0-18.0 Hematocrit 46 % 42-52 Mean Corpuscular Volume 93 um3 80-94 Mean Corpuscular Hemoglob 32 pg High 27-31 Mean Corpuscular HGB Cone 35 g/dL 32-36 Redcell Distribution WDTH 15 % 10.5-15 Platelet Count 154 CUMM 150-450 Mean Platelet Volume 7.9 um3 7.4-10.4 Gran % 60.0 % 38-83 Lymph % 23.6 % Low 25-47 Mononuclear % 9.4 % High 1-9 Eosinophil % 6.6 % High 0-6 Basophil % 0.4 % 0-2 Abs Lymphs 1.5 1.0-4.8 Abs Mononuclear 0.6 0-0.8 Absolute Neutrophil Count 3.7 1.5-7.7 Abs Eosinophils 0.4 0-0.6 Abs Basophils 0 0-0.2 Laboratory test 01/12/2009 D Dimer Quantitative 502 NG/ML High Less Than 230 89 finding BNP Evaluatr 95.0 pg/mL 0-100 Magnesium 2.3 mg/dL 1.7-2.6 Protime Stat 01/12/2009 Inr 1.12 0.86-1.13 90 Protime 13.5 SEC 10.7-13.6 91 Laboratory test finding 01/12/2009 PTT (Aptt) Stat 32.9 25.15-38.53 92 CMP Panel Stat 01/12/2009 Sodium 142 mmol/L 135-145 Potassium 4.3 mmol/L 3.5-5.0 Chloride 106 mmol/L 101-111 Co2 (Carbon Dioxide) 28.0 mmol/L 22-32 Anion Gap 8.0 mmol/L 2-11 93 Glucose 156 mg/dL High 70-100 94 BUN 19 mg/dL 6-24 Creatinine 1.20 mg/dL 0.50-1.40 One Over Creatinine 0.80 BUN/Creatinine Ratio 15.8 8-20 Calcium 10.5 mg/dL High 8.1-9.9 95 Total Protein 6.7 GM/DL 6.2-8.1 Albumin 3.6 GM/DL 3.2-5.2 Globulin 3.1 GM/DL 2-4 Albumin/Globulin Ratio 1.2 1-3 Bilirubin Total 0.9 mg/dL 0.4-1.5 96 Alkaline Phosphatase 50 U/L 39-117 Alt (SGPT) 29 U/L 17-63 Ast (Sgot) 25 U/L 12-42 eGFR Non- 62.2 > 60 eGFR 75.3 > 60 97 Laboratory test finding 01/12/2009 Troponin-I (TnI) 0.01 NG/ML 98 CBC With Electronic Diff Stat 01/12/2009 White Blood Count 7.4 CUMM 4.8- 10.8 Red Cell Count 4.77 CUMM 4.6-6.2 Hemoglobin 15.3 g/dL 14.0-18.0 Hematocrit 45 % 42-52 Mean Corpuscular Volume 95 um3 High 80-94 Mean Corpuscular Hemoglob 32 pg High 27-31 Mean Corpuscular HGB Cone 34 g/dL 32-36 Redcell Distribution WDTH 14 % 10.5-15 Platelet Count 131 CUMM Low 150-450 Mean Platelet Volume 8.1 um3 7.4-10.4 Gran % 65.3 % 38-83 Lymph % 20.7 % Low 25-47 Mononuclear % 8.9 % 1-9 Eosinophil % 4.8 % 0-6 Basophil % 0.3 % 0-2 Abs Lymphs 1.5 1.0-4.8 Abs Mononuclear 0.7 0-0.8 Absolute Neutrophil Count 4.9 1.5-7.7 Abs Eosinophils 0.4 0-0.6 Abs Basophils 0 0-0.2 CBC With Manual Diff 01/12/2009 White Blood Count 10.6 CUMM 4.8-10.8 Red Cell Count 4.90 CUMM 4.6-6.2 Hemoglobin 15.8 g/dL 14.0-18.0 Hematocrit 47 % 42-52 Mean Corpuscular Volume 95 um3 High 80-94 Mean Corpuscular Hemoglob 32 pg High 27-31 Mean Corpuscular HGB Cone 34 g/dL 32-36 Redcell Distribution WDTH 15 % 10.5-15 Platelet Count 153 CUMM 150-450 Mean Platelet Volume 8.2 um3 7.4-10.4 Polysegmented Neutrophil 74 % 38-83 Lymphocyte 19 % Low 25-47 Monocyte 4 % 0-13 Eosenophil 1 % 0-6 Atypical Lymph 2 % 0-6 Absolute Neutrophil Count 7.8 Anisocytosis SLIGHT Laboratory test finding 01/12/2009 Troponin-I (TnI) 0.01 NG/ML 99 CMP Panel Stat 01/12/2009 Sodium 142 mmol/L 135-145 Potassium 5.5 mmol/L High 3.5-5.0 Chloride 109 mmol/L 101-111 Co2 (Carbon Dioxide) 24.0 mmol/L 22-32 Anion Gap 9.0 mmol/L 2-11 100 Glucose 155 mg/dL High 70-100 101 BUN 20 mg/dL 6-24 Creatinine 1.30 mg/dL 0.50-1.40 One Over Creatinine 0.70 BUN/Creatinine Ratio 15.4 8-20 Calcium 10.4 mg/dL High 8.1-9.9 102 Total Protein 6.6 GM/DL 6.2-8.1 Albumin 3.5 GM/DL 3.2-5.2 Globulin 3.1 GM/DL 2-4 Albumin/Globulin Ratio 1.1 1-3 Bilirubin Total 1.2 mg/dL 0.4-1.5 103 Alkaline Phosphatase 48 U/L 39-117 Alt (SGPT) 24 U/L 17-63 Ast (Sgot) 35 U/L 12-42 eGFR Non- 56.7 > 60 eGFR 68.7 > 60 104 Comp Metabolic Panel 11/06/2008 Sodium 142 mmol/L 135-145 Potassium 3.9 mmol/L 3.5-5.0 Chloride 111 mmol/L 101-111 Co2 (Carbon Dioxide) 24.0 mmol/L 22-32 Anion Gap 7.0 mmol/L 2-11 105 Glucose 141 mg/dL High 70-100 106 BUN 19 mg/dL 6-24 Creatinine 1.00 mg/dL 0.50-1.40 One Over Creatinine 1.00 BUN/Creatinine Ratio 19.0 8-20 Calcium 10.2 mg/dL High 8.1-9.9 107 Total Protein 6.4 GM/DL 6.2-8.1 Albumin 3.4 GM/DL 3.2-5.2 Globulin 3.0 GM/DL 2-4 Albumin/Globulin Ratio 1.1 1-3 Bilirubin Total 0.7 mg/dL 0.4-1.5 108 Alkaline Phosphatase 52 U/L 39-117 Alt (SGPT) 28 U/L 17-63 Ast (Sgot) 24 U/L 12-42 eGFR Non- 76.8 > 60 eGFR 92.9 > 60 109 Laboratory test finding 09/19/2008 PSA,Diagnostic 13.65 NG/ML High 0-4 110 Lipid Profile (Trig/Chol/HDL) 05/10/2008 Triglyceride 159 mg/dL 40-200 Cholesterol 127 mg/dL Less Than 200 111 High Density Lipoprotein 31 mg/dL Low 40-60 112 Cholesterol/HDL Ratio 4.10 AVERAGE 1-4.97 Low Density Lipoprotein 64 mg/dL Less Than 100 113 Comp Metabolic Panel 05/10/2008 Sodium 136 mmol/L 135-145 Potassium 3.9 mmol/L 3.5-5.0 Chloride 106 mmol/L 101-111 Co2 (Carbon Dioxide) 24.0 mmol/L 22-32 Anion Gap 6.0 mmol/L 2-11 114 Glucose 81 mg/dL 70-100 115 BUN 21 mg/dL 6-24 Creatinine 0.84 mg/dL 0.50-1.40 One Over Creatinine 1.10 BUN/Creatinine Ratio 25.0 High 8-20 Calcium 9.1 mg/dL 8.1-9.9 116 Total Protein 5.9 GM/DL Low 6.2-8.1 Albumin 3.4 GM/DL 3.2-5.2 Globulin 2.5 GM/DL 2-4 Albumin/Globulin Ratio 1.4 1-3 Bilirubin Total 0.8 mg/dL 0.4-1.5 Alkaline Phosphatase 55 U/L 39-117 Alt (SGPT) 20 U/L 17-63 Ast (Sgot) 18 U/L 12-42 CBC With Electronic Diff Stat 03/25/2008 White Blood Count 8.8 CUMM 4.8- 10.8 Red Cell Count 4.83 CUMM 4.6-6.2 Hemoglobin 15.5 g/dL 14.0-18.0 Hematocrit 44 % 42-52 Mean Corpuscular Volume 92 um3 80-94 Mean Corpuscular Hemoglob 32 pg High 27-31 Mean Corpuscular HGB Cone 35 g/dL 32-36 Redcell Distribution WDTH 14 % 10.5-15 Platelet Count 163 CUMM 150-450 Mean Platelet Volume 8.0 um3 7.4-10.4 Gran % 69.2 % 38-83 Lymph % 14.4 % Low 25-47 Mononuclear % 11.3 % High 1-9 Eosinophil % 4.6 % 0-6 Basophil % 0.5 % 0-2 Abs Lymphs 1.3 1.0-4.8 Abs Mononuclear 1.0 High 0-0.8 Absolute Neutrophil Count 6.1 1.5-7.7 Abs Eosinophils 0.4 0-0.6 Abs Basophils 0 0-0.2 117 Protime Stat 03/25/2008 Protime 12.4 10.9-13.3 Inr 1.05 118 PTT (Aptt) Stat 03/25/2008 PTT (Aptt) 27.3 20.1-28.2 119 Laboratory test finding 02/09/2008 PSA,Diagnostic 8.48 NG/ML High 0-4 120 1 Serum levels of PSA measured using the [employer] DXI Hybritech immunoassay should not be interpreted as absolute evidence of the presence or absence of disease. The PSA value should be used in conjunction with other pertinent clinical diagnostic procedures. The values obtained with different assay methods or kits cannot be used interchangeably. 2 Because ethnic data is not always readily available, this report includes an eGFR for both -Americans and non- Americans. The National Kidney Disease Education Program (NKDEP) does not endorse the use of the MDRD equation for patients that are not between the ages of 18 and 70, are , have extremes of body size, muscle mass, or nutritional status, or are non- or non-. According to the National Kidney Foundation, irrespective of diagnosis, the stage of the disease is based on the level of kidney function: Stage Description GFR(mL/min/1.73 m(2)) 1 Kidney damage with normal or decreased GFR 90 2 Kidney damage with mild decrease in GFR 60-89 3 Moderate decrease in GFR 30-59 4 Severe decrease in GFR 15-29 5 Kidney failure <15 (or dialysis) 3 Desirable <150 Borderline high 150-199 High 200-499 Very High >500 4 Desirable <200 Borderline high 200-239 High >239 5 Low <40 Desirable: 40-60 High: >60 6 Desirable: <100 mg/dL Near Optimal: 100-129 mg/dL Borderline High: 130-159 mg/dL High: 160-189 mg/dL Very High: >189 mg/dL 7 [id number] 9 Because ethnic data is not always readily available, this report includes an eGFR for both -Americans and non- Americans. The National Kidney Disease Education Program (NKDEP) does not endorse the use of the MDRD equation for patients that are not between the ages of 18 and 70, are , have extremes of body size, muscle mass, or nutritional status, or are non- or non-. According to the National Kidney Foundation, irrespective of diagnosis, the stage of the disease is based on the level of kidney function: Stage Description GFR(mL/min/1.73 m(2)) 1 Kidney damage with normal or decreased GFR 90 2 Kidney damage with mild decrease in GFR 60-89 3 Moderate decrease in GFR 30-59 4 Severe decrease in GFR 15-29 5 Kidney failure <15 (or dialysis) 10 [id number] 11 Serum levels of PSA measured using the [employer] [place] DXI Hybrite[employer] immunoassay should not be interpreted as absolute evidence of the presence or absence of disease. The PSA value should be used in conjunction with other pertinent clinical diagnostic procedures. The values obtained with different assay methods or kits cannot be used interchangeably. 12 [id number] 14 Serum levels of PSA measured using the [employer] DXI Hybritech immunoassay should not be interpreted as absolute evidence of the presence or absence of disease. The PSA value should be used in conjunction with other pertinent clinical diagnostic procedures. The values obtained with different assay methods or kits cannot be used interchangeably. 15 Because ethnic data is not always readily available, this report includes an eGFR for both -Americans and non- Americans. The National Kidney Disease Education Program (NKDEP) does not endorse the use of the MDRD equation for patients that are not between the ages of 18 and 70, are , have extremes of body size, muscle mass, or nutritional status, or are non- or non-. According to the National Kidney Foundation, irrespective of diagnosis, the stage of the disease is based on the level of kidney function: Stage Description GFR(mL/min/1.73 m(2)) 1 Kidney damage with normal or decreased GFR 90 2 Kidney damage with mild decrease in GFR 60-89 3 Moderate decrease in GFR 30-59 4 Severe decrease in GFR 15-29 5 Kidney failure <15 (or dialysis) 16 [facility] [place] [address] 17 Desirable <150 Borderline high 150-199 High 200-499 Very High >500 18 Desirable <200 Borderline high 200-239 High >239 19 Low <40 Desirable: 40-60 High: >60 20 Desirable: <100 mg/dL Near Optimal: 100-129 mg/dL Borderline High: 130-159 mg/dL High: 160-189 mg/dL Very High: >189 mg/dL 21 Serum levels of PSA measured using the [employer] [place] DXI Hybritech immunoassay should not be interpreted as absolute evidence of the presence or absence of disease. The PSA value should be used in conjunction with other pertinent clinical diagnostic procedures. The values obtained with different assay methods or kits cannot be used interchangeably. 22 [id number] 23 Because ethnic data is not always readily available, this report includes an eGFR for both -Americans and non- Americans. The National Kidney Disease Education Program (NKDEP) does not endorse the use of the MDRD equation for patients that are not between the ages of 18 and 70, are , have extremes of body size, muscle mass, or nutritional status, or are non- or non-. According to the National Kidney Foundation, irrespective of diagnosis, the stage of the disease is based on the level of kidney function: Stage Description GFR(mL/min/1.73 m(2)) 1 Kidney damage with normal or decreased GFR 90 2 Kidney damage with mild decrease in GFR 60-89 3 Moderate decrease in GFR 30-59 4 Severe decrease in GFR 15-29 5 Kidney failure <15 (or dialysis) 24 Serum levels of PSA measured using the [employer] [place] DXI Hybritech immunoassay should not be interpreted as absolute evidence of the presence or absence of disease. The PSA value should be used in conjunction with other pertinent clinical diagnostic procedures. The values obtained with different assay methods or kits cannot be used interchangeably. 25 Serum levels of PSA measured using the [employer] [place] DXI Hybritech immunoassay should not be interpreted as absolute evidence of the presence or absence of disease. The PSA value should be used in conjunction with other pertinent clinical diagnostic procedures. The values obtained with different assay methods or kits cannot be used interchangeably. 26 Serum levels of PSA measured using the [employer] [place] DXI Hybritech immunoassay should not be interpreted as absolute evidence of the presence or absence of disease. The PSA value should be used in conjunction with other pertinent clinical diagnostic procedures. The values obtained with different assay methods or kits cannot be used interchangeably. 27 Because ethnic data is not always readily available, this report includes an eGFR for both -Americans and non- Americans. The National Kidney Disease Education Program (NKDEP) does not endorse the use of the MDRD equation for patients that are not between the ages of 18 and 70, are , have extremes of body size, muscle mass, or nutritional status, or are non- or non-. According to the National Kidney Foundation, irrespective of diagnosis, the stage of the disease is based on the level of kidney function: Stage Description GFR(mL/min/1.73 m(2)) 1 Kidney damage with normal or decreased GFR 90 2 Kidney damage with mild decrease in GFR 60-89 3 Moderate decrease in GFR 30-59 4 Severe decrease in GFR 15-29 5 Kidney failure <15 (or dialysis) 28 REFERENCE VALUE 25-HYDROXY D TOTAL (D2+D3) Optimum levels in the healthy population are 20-50, patients with bone disease may benefit from higher levels within this range. Test Performed by: [facility] [address] [address] Tim[employer] Setter: Nj Hooker M.D. 29 Desirable <150 Borderline high 150-199 High 200-499 Very High >500 30 Desirable <200 Borderline high 200-239 High >239 31 Low <40 Desirable: 40-60 High: >60 32 Desirable <100 Near Optimal 100-129 Borderline high 130-159 High 160-189 Very High >189 33 Serum levels of PSA measured using the [employer] [place] DXI Hybritech immunoassay should not be interpreted as absolute evidence of the presence or absence of disease. The PSA value should be used in conjunction with other pertinent clinical diagnostic procedures. The values obtained with different assay methods or kits cannot be used interchangeably. 34 -- REFERENCE VALUE -- 25-HYDROXY D TOTAL (D2+D3) Optimum levels in the healthy population are 20-50, patients with bone disease may benefit from higher levels within this range. Test Performed by: [facility] - [address] [address] Tim[employer] Setter: Benjamín Ness III, M.D. 35 Because ethnic data is not always readily available, this report includes an eGFR for both -Americans and non- Americans. The National Kidney Disease Education Program (NKDEP) does not endorse the use of the MDRD equation for patients that are not between the ages of 18 and 70, are , have extremes of body size, muscle mass, or nutritional status, or are non- or non-. According to the National Kidney Foundation, irrespective of diagnosis, the stage of the disease is based on the level of kidney function: Stage Description GFR(mL/min/1.73 m(2)) 1 Kidney damage with normal or decreased GFR 90 2 Kidney damage with mild decrease in GFR 60-89 3 Moderate decrease in GFR 30-59 4 Severe decrease in GFR 15-29 5 Kidney failure <15 (or dialysis) 36 Desirable <150 Borderline high 150-199 High 200-499 Very High >500 37 Desirable <200 Borderline high 200-239 High >239 38 Low <40 Desirable: 40-60 High: >60 39 Desirable <100 Near Optimal 100-129 Borderline high 130-159 High 160-189 Very High >189 40 Because ethnic data is not always readily available, this report includes an eGFR for both -Americans and non- Americans. The National Kidney Disease Education Program (NKDEP) does not endorse the use of the MDRD equation for patients that are not between the ages of 18 and 70, are , have extremes of body size, muscle mass, or nutritional status, or are non- or non-. According to the National Kidney Foundation, irrespective of diagnosis, the stage of the disease is based on the level of kidney function: Stage Description GFR(mL/min/1.73 m(2)) 1 Kidney damage with normal or decreased GFR 90 2 Kidney damage with mild decrease in GFR 60-89 3 Moderate decrease in GFR 30-59 4 Severe decrease in GFR 15-29 5 Kidney failure <15 (or dialysis) 41 HDL Interpretation: Undesirable: High Risk: Less than 40 mg/dL Desirable: Low Risk: Greater than 60 mg/dL 42 LDL Interpretation: Low Risk Optimal Level: LDL Less than 100 mg/dL Near or Above Optimal: LDL 100-129 mg/dL Borderline High Risk: LDL 130-159 mg/dL High Risk: LDL 160-189 mg/dL Very High Risk: LDL Greater than 189 mg/dL 43 Serum levels of PSA measured using the [employer] [place] DXI Hybrite[employer] immunoassay should not be interpreted as absolute evidence of the presence or absence of disease. The PSA value should be used in conjunction with other pertinent clinical diagnostic procedures. The values obtained with different assay methods or kits cannot be used interchangeably. 44 Serum levels of PSA measured using the [employer] [place] DXI Hybr[employer] immunoassay should not be interpreted as absolute evidence of the presence or absence of disease. The PSA value should be used in conjunction with other pertinent clinical diagnostic procedures. The values obtained with different assay methods or kits cannot be used interchangeably. 45 Serum levels of PSA measured using the [employer] [place] DXI Hybr[employer] immunoassay should not be interpreted as absolute evidence of the presence or absence of disease. The PSA value should be used in conjunction with other pertinent clinical diagnostic procedures. The values obtained with different assay methods or kits cannot be used interchangeably. 46 -- REFERENCE VALUE -- 25-HYDROXY D TOTAL (D2+D3) Optimum levels in the normal population are 25-80 Test Performed by: [address] [address] Tim[employer] Setter: Benjamín Ness III, M.D. 47 Because ethnic data is not always readily available, this report includes an eGFR for both -Americans and non- Americans. The National Kidney Disease Education Program (NKDEP) does not endorse the use of the MDRD equation for patients that are not between the ages of 18 and 70, are , have extremes of body size, muscle mass, or nutritional status, or are non- or non-. According to the National Kidney Foundation, irrespective of diagnosis, the stage of the disease is based on the level of kidney function: Stage Description GFR(mL/min/1.73 m(2)) 1 Kidney damage with normal or decreased GFR 90 2 Kidney damage with mild decrease in GFR 60-89 3 Moderate decrease in GFR 30-59 4 Severe decrease in GFR 15-29 5 Kidney failure <15 (or dialysis) 48 A metabolite of Naproxen, O-desmethylnaproxen, has been shown to interfere with the [place] method for measuring total bilirubin. Samples from patients who have taken Naproxen have shown spurious elevation in total bilirubin levels. 49 Because ethnic data is not always readily available, this report includes an eGFR for both -Americans and non- Americans. The National Kidney Disease Education Program (NKDEP) does not endorse the use of the MDRD equation for patients that are not between the ages of 18 and 70, are , have extremes of body size, muscle mass, or nutritional status, or are non- or non-. According to the National Kidney Foundation, irrespective of diagnosis, the stage of the disease is based on the level of kidney function: Stage Description GFR(mL/min/1.73 m(2)) 1 Kidney damage with normal or decreased GFR 90 2 Kidney damage with mild decrease in GFR 60-89 3 Moderate decrease in GFR 30-59 4 Severe decrease in GFR 15-29 5 Kidney failure <15 (or dialysis) 50 Reference Range and Interpretation: TnI (ng/ml) Interpretation Less Than 0.06 ng/mL Not supportive of diagnosis of [place] 0.06 - 0.50 ng/ml Indeterminate: suggest serial studies if clinically indicated. Greater than 0.5 ng/mL Consistent with diagnosis of [place] 51 Effective January 04, 2012, in conjunction with the upgrade of the hospital information system, [facility] will release the International Normalized Ratio (INR) only. Patient reports will no longer contain prothrombin time (PT) results in seconds. This allows for consistency in patient evaluation and treatment. The INR was adopted by the World Health Organization (WHO) in 1983 as a standardized system of reporting PT. The Centers for Disease Control (CDC) states that reporting of PT results in INR only is the preferred method. Recommended INR for Patients on Oral Anticoagulants Prophylaxis 2.0 - 3.0 Treatment of thrombosis 2.0 - 3.0 Prevention of embolism 2.0 - 3.0 Prevention of embolism from prosthetic heart valves 2.5 - 3.5 52 Effective February 03, 2012 new APTT reference and therapeutic values have been implemented. 53 Platelets clumped. Unable to perform accurate count. 54 -- REFERENCE VALUE -- 25-HYDROXY D TOTAL (D2+D3) Optimum levels in the normal population are 25-80 Test Performed by: [facility] Dpt of Lab Med and Pathology [address] [place] [id number] Timber Setter: Benjamín Ness III, M.D. 55 Anion gap measurement may be of limited value in the presence of any alkalosis, especially in a combined acid base disorder. . 56 A metabolite of Naproxen, O-desmethylnaproxen, has been shown to interfere with the [place] method for measuring total bilirubin. Samples from patients who have taken Naproxen have shown spurious elevation in total bilirubin levels. 57 Because ethnic data is not always readily available, this report includes an eGFR for both -Americans and non- Americans. The National Kidney Disease Education Program (NKDEP) does not endorse the use of the MDRD equation for patients that are not between the ages of 18 and 70, are , have extremes of body size, muscle mass, or nutritional status, or are non- or non-. According to the National Kidney Foundation, irrespective of diagnosis, the stage of the disease is based on the level of kidney function: Stage Description GFR(mL/min/1.73 m(2)) 1 Kidney damage with normal or decreased GFR 90 2 Kidney damage with mild decrease in GFR 60-89 3 Moderate decrease in GFR 30-59 4 Severe decrease in GFR 15-29 5 Kidney failure <15 (or dialysis) 58 CHOLESTEROL INTERPRETATION: Desirable: Less than 200 MG/DL Borderline-High Risk: 200-239 MG/DL High-Risk: 240 MG/DL and over 59 HDL INTERPRETATION: Undesirable: High Risk: Less than 40 MG/DL Desirable: Low Risk: Greater than 60 MG/DL 60 LDL INTERPRETATION: Low Risk Optimal Level: LDL Less than 100 MG/DL Near or Above Optimal: LDL 100-129 MG/DL Borderline High Risk: LDL 130-159 MG/DL High Risk: LDL 160-189 MG/DL Very High Risk: LDL Greater than 189 MG/DL 61 -- REFERENCE VALUE -- 25-HYDROXY D TOTAL (D2+D3) Optimum levels in the normal population are 25-80 Test Performed by: [facility] Dpt of Lab Med and Pathology [address] [place] [address] Timber Setter: Benjamín Ness III, M.D. 62 Anion gap measurement may be of limited value in the presence of any alkalosis, especially in a combined acid base disorder. . 63 Because ethnic data is not always readily available, this report includes an eGFR for both -Americans and non- Americans. The National Kidney Disease Education Program (NKDEP) does not endorse the use of the MDRD equation for patients that are not between the ages of 18 and 70, are , have extremes of body size, muscle mass, or nutritional status, or are non- or non-. According to the National Kidney Foundation, irrespective of diagnosis, the stage of the disease is based on the level of kidney function: Stage Description GFR(mL/min/1.73 m(2)) 1 Kidney damage with normal or decreased GFR 90 2 Kidney damage with mild decrease in GFR 60-89 3 Moderate decrease in GFR 30-59 4 Severe decrease in GFR 15-29 5 Kidney failure <15 (or dialysis) 64 Anion gap measurement may be of limited value in the presence of any alkalosis, especially in a combined acid base disorder. . 65 Because ethnic data is not always readily available, this report includes an eGFR for both -Americans and non- Americans. The National Kidney Disease Education Program (NKDEP) does not endorse the use of the MDRD equation for patients that are not between the ages of 18 and 70, are , have extremes of body size, muscle mass, or nutritional status, or are non- or non-. According to the National Kidney Foundation, irrespective of diagnosis, the stage of the disease is based on the level of kidney function: Stage Description GFR(mL/min/1.73 m(2)) 1 Kidney damage with normal or decreased GFR 90 2 Kidney damage with mild decrease in GFR 60-89 3 Moderate decrease in GFR 30-59 4 Severe decrease in GFR 15-29 5 Kidney failure <15 (or dialysis) 66 -- REFERENCE VALUE -- 25-HYDROXY D TOTAL (D2+D3) Optimum levels in the normal population are 25-80 Test Performed by: [facility] Dpt of Lab Med and Pathology [address] [place] [address] Timber Setter: Benjamín Ness III, M.D. 67 Please note change in reference range effective 08 . 68 Please note change in reference range effective 08 . 69 Interpretation: 10-24 (mild to moderate deficiency) -- REFERENCE VALUE -- 25-HYDROXY D TOTAL (D2+D3) Optimum levels in the normal population are 25-80 Test Performed by: [facility] Dpt of Lab Med and Pathology [address] [place] [address] Timber Setter: Benjamín Ness III, M.D. 70 Anion gap measurement may be of limited value in the presence of any alkalosis, especially in a combined acid base disorder. . 71 Because ethnic data is not always readily available, this report includes an eGFR for both -Americans and non- Americans. The National Kidney Disease Education Program (NKDEP) does not endorse the use of the MDRD equation for patients that are not between the ages of 18 and 70, are , have extremes of body size, muscle mass, or nutritional status, or are non- or non-. According to the National Kidney Foundation, irrespective of diagnosis, the stage of the disease is based on the level of kidney function: Stage Description GFR(mL/min/1.73 m(2)) 1 Kidney damage with normal or decreased GFR 90 2 Kidney damage with mild decrease in GFR 60-89 3 Moderate decrease in GFR 30-59 4 Severe decrease in GFR 15-29 5 Kidney failure <15 (or dialysis) 72 THERAPEUTIC TARGET FOR THE TREATMENT OF DIABETES MELLITUS PATIENTS IS <7% HBA1C, AND IN SELECTIVE PATIENTS <6.0%. PLEASE REFER TO [employer] DIABETIC CARE GUIDELINES FOR FURTHER INFORMATION. 73 * SERUM LEVELS OF PSA MEASURED USING THE ELIE [employer] ACCESS HYBRITECH IMMUNOASSAY SHOULD NOT BE INTERPRETED ABSOLUTE EVIDENCE OF THE PRESENCE OR ABSENCE OF DISEASE. THE PSA VALUE SHOULD BE USED IN CONJUNCTION WITH OTHER PERTINENT CLINICAL DIAGNOSTIC PROCEDURES. 74 Anion gap measurement may be of limited value in the presence of any alkalosis, especially in a combined acid base disorder. . 75 Note change in reference range as of 11/24/07. The change was based on recommendations from the [employer]. 76 A metabolite of Naproxen, O-desmethylnaproxen, has been shown to interfere with the Jendrassik-Winston method for measuring total bilirubin. Samples from patients who have taken Naproxen have shown spurious elevation in total bilirubin levels. 77 Because ethnic data is not always readily available, this report includes an eGFR for both -Americans and non- Americans. The National Kidney Disease Education Program (NKDEP) does not endorse the use of the MDRD equation for patients that are not between the ages of 18 and 70, are , have extremes of body size, muscle mass, or nutritional status, or are non- or non-. According to the National Kidney Foundation, irrespective of diagnosis, the stage of the disease is based on the level of kidney function: Stage Description GFR(mL/min/1.73 m(2)) 1 Kidney damage with normal or decreased GFR 90 2 Kidney damage with mild decrease in GFR 60-89 3 Moderate decrease in GFR 30-59 4 Severe decrease in GFR 15-29 5 Kidney failure <15 (or dialysis) 78 CHOLESTEROL INTERPRETATION: Desirable: Less than 200 MG/DL Borderline-High Risk: 200-239 MG/DL High-Risk: 240 MG/DL and over 79 HDL INTERPRETATION: Undesirable: High Risk: Less than 40 MG/DL Desirable: Low Risk: Greater than 60 MG/DL 80 LDL INTERPRETATION: Low Risk Optimal Level: LDL Less than 100 MG/DL Near or Above Optimal: LDL 100-129 MG/DL Borderline High Risk: LDL 130-159 MG/DL High Risk: LDL 160-189 MG/DL Very High Risk: LDL Greater than 189 MG/DL 81 ---- RUN DATE: 09/19/09 [facility] NMI LIVE PAGE 1 RUN TIME: 1514 Specimen Inquiry RUN USER: INTERFACE -- Name: RUSS MORRISON Status: REG REF Re09/17/09 Age/Sex: 79/M Unit#: [id number] Location: [facility] : 30 -- Specimen: [id number] SOUT Spec Date: 09/17/[address] [facility] [address]: Charles Hernadez i, MD Spec Type: SURGICAL P Received: 09/18/09 Copies to: Sharda Van SPECIMEN 1) LEFT LOBE PROSTATE BIOPSY APEX (APEX 3) 2) LEFT LOBE PROSTATE BIOPSY BASE (BASE 3) 3) RIGHT LOBE PROSTATE BIOPSY APEX (APEX 3) 4) RIGHT LOBE PROSTATE BIOPSY BASE (BASE 3) HISTORY PRE-OP DIAGNOSIS: Enlarged prostate, diffuse firmness/induration left bas e, PSA 15.8 GROSS DESCRIPTION 1) The specimen is received in formalin labelled Russ Morrison, Left Prostate Lobe [place] and consists of three, charlton, soft tissue cores measuring 1.0 cm., 1.5 cm., and 1.9 x 0.1 cm. Submitted entirely, one cassette. 2) The specimen is received in formalin labelled Russ Morrison, Left Prostate Lobe Base and consists of three, charlton, soft tissue cores measuring 1.2 cm., 1.4 cm., and 1.8 x 0.1 cm. Submitted entirely, one cassette. 3) The specimen is received in formalin labelled Russ Morrison, Right Prostate Lobe [place] and consists of three, charlton, soft tissue cores measuring 1.6 cm., 1.5 cm., and 1.4 x 0.1 cm. Submitted entirely, one cassette. 4) The specimen is received in formalin labelled Russ Morrison Right Prostate Lobe Base and consists of three, charlton, soft tissue cores measuring 1.7 cm., 1.7 cm., and 1.4 x 0.1 cm. Submitted entirely, one cassette. DIAGNOSIS 1) Prostate, left apex, core biopsies: A. Prostatic adenocarcinoma, small acinar and large gland type: 1. Areli score: 4 + 3=7. 2. Extent of Local Invasion: Tumor involves two foci on two of three cores, measures 2.0 cm. in aggregate dimension and occupies approximately 60% of total core length. 3. Perineural Invasion: Present. -- DEPARTMENT OF PATHOLOGY, [address] [place] [address] [facility] Permit #[id number] Olivier Abdul M.D. Beauty Advisor Dir sami -- -- RUN DATE: 09/19/09 [facility] NMI LIVE PAGE 2 RUN TIME: 1514 Specimen Inquiry RUN USER: INTERFACE -- Name: TANYARUSS Status: REG REF Re09/17/09 Age/Sex: 79/M Unit#: [id number] Location: [facility] : 30 -- -- CONTINUED -- DIAGNOSIS (Continued) 4. Angiolymphatic Invasion: Present. B. Other findings: Single focus within extra prostatic fibroadipose tissue suggestive of extra prostatic extension noted. 2) Prostate, left base, core biopsies: A. Prostatic adenocarcinoma, small acinar type: 1. Jasper score: 3 + 3=6. 2. Extent of Local Invasion: Tumor involves one minute focus on one of three cores, measures 0.1 cm. in maximal aggregate span and occupies less than 5% of total core length. 3. Perineural Invasion: Not seen. 4. Angiolymphatic Invasion: Not seen. B. Other findings: None. 3) Prostate, right apex, core biopsies: A. Prostatic adenocarcinoma, small acinar and large gland type: 1. Jasper score: 4 + 3=7. 2. Extent of Local Invasion: Tumor involves three foci on two of three cores, measures 1.0 cm. in maximal aggregate span and occupies 30% of total core length. 3. Perineural Invasion: Present. 4. Angiolymphatic Invasion: Not seen. B. Other findings: None. 4) Prostate, right base, core biopsies: A. Prostatic adenocarcinoma, small acinar type: 1. Areli score: 4 + 3=7. 2. Extent of Local Invasion: Tumor involves two foci on two of three cores, measures 0.4 cm. in maximal aggregate span and occupies 20% of total core length. 3. Perineural Invasion: Not seen. 4. Angiolymphatic Invasion: Not seen. B. Other findings: None. Signed Electronically by: HERVE POZO MD 09/19/09 1513 -- -- DEPARTMENT OF PATHOLOGY, [address] [place] [address] [facility] Permit #[id number] Herve Pozo M.D. Director Zack Pop M.D. Beauty Advisor Dir sami -- 82 * SERUM LEVELS OF PSA MEASURED USING THE ELIE [employer] ACCESS HYBRITECH IMMUNOASSAY SHOULD NOT BE INTERPRETED ABSOLUTE EVIDENCE OF THE PRESENCE OR ABSENCE OF DISEASE. THE PSA VALUE SHOULD BE USED IN CONJUNCTION WITH OTHER PERTINENT CLINICAL DIAGNOSTIC PROCEDURES. 83 CHOLESTEROL INTERPRETATION: Desirable: Less than 200 MG/DL Borderline-High Risk: 200-239 MG/DL High-Risk: 240 MG/DL and over 84 HDL INTERPRETATION: Undesirable: High Risk: Less than 40 MG/DL Desirable: Low Risk: Greater than 60 MG/DL 85 LDL INTERPRETATION: Low Risk Optimal Level: LDL Less than 100 MG/DL Near or Above Optimal: LDL 100-129 MG/DL Borderline High Risk: LDL 130-159 MG/DL High Risk: LDL 160-189 MG/DL Very High Risk: LDL Greater than 189 MG/DL 86 ---- RUN DATE: 06/24/09 [facility] NMI LIVE PAGE 1 RUN TIME: 1416 Specimen Inquiry RUN USER: INTERFACE -- Name: RUSS MORRISON Status: REG [facility] Re06/20/09 Age/Sex: 79/M Unit#: [id number] Location: [facility] : 30 -- Specimen: [id number] Spec Date: 06/20/[address] [facility] [address]: Pedro lassiter MD Spec Type: SURGICAL P Received: 06/20/09-1207 Copies to: Js mora MD SPECIMEN WIDE EXCISION MELANOMA DISTAL LEFT ARM HISTORY PRE-OP DIAGNOSIS: Melanoma left distal lateral arm, suture garcia twelve o 'clock. GROSS DESCRIPTION The specimen is received in formalin labelled Russ Morrison, Wide Excision Melanoma Distal Left Arm, Suture Garcia Twelve O'clock, and consists of a skin excision measuring 6.5 x 1.9 x 1.5 cm. with a scab in the center of the specimen and a recent scar extending almost throughout the length of the specimen. The margin from twelve through three to six o'clock is inked black and the opposite margin is inked blue. The specimen is serially sectioned and submitted entirely as follows: twelve o'clock half in cassettes A through C and the remainder in cassettes D through F. DIAGNOSIS Skin, distal left arm, wide excision: A. Skin with severe elastosis and scar. B. Subcutaneous tissue with evidence of fat necrosis. C. No evidence of residual malignant melanoma (as demonstrated by immunohistochemical stains performed with appropriat controls on block E) D. Focal inflamed crust. E. All margins of excision free of malignant melanoma. Signed Electronically by: ZACK POP 06/24/09 1416 -- -- DEPARTMENT OF PATHOLOGY, [address] [place] [address] [facility] Permit #[id number] Herve Pozo M.D. Director Zack Pop M.D. Beauty Advisor Dir sami -- 87 ---- RUN DATE: 06/12/09 [facility] NMI LIVE PAGE 1 RUN TIME: 1313 Specimen Inquiry RUN USER: INTERFACE -- Name: RUSS MORRISON Status: REG REF Re06/04/09 Age/Sex: 79/M Unit#: [id number] Location: [facility] : 30 -- Specimen: [id number] SOUT Spec Date: 06/04/[address] [facility] [address]: Pedro lassiter MD Spec Type: SURGICAL P Received: 06/05/09-1014 Copies to: Js mora MD SPECIMEN NARROW EXCISION MELANOMA LEFT DISTAL LATERAL ARM HISTORY PRE-OP DIAGNOSIS: Melanoma; stitch at twelve o'clock position CLINICAL INFORMATION: Previous biopsy at [facility] GROSS DESCRIPTION The specimen is received in formalin labelled Russ Morrison, Narrow Excision Melanoma Left Distal Lateral Arm, Stitch at Twelve O'clock Position, and consists of an oriented skin ellipse measuring 3.7 x 1.6 cm. by up to 0.5 cm. with a central slightly raised irregular charlton macule with focal areas of excoriation measuring up to 1.2 cm. The three o'clock aspect is inked blue, the nine o'clock aspect is inked black, and the twelve o'clock tip is inked green. The specimen is serially sectioned along its short axis and submitted entirely in A through C from twelve to six o'clock. DIAGNOSIS Skin, left distal lateral arm, excision: A. Malignant melanoma, with: 1. Breslow thickness: Up to 0.56 mm. 2. Jerome's level 3. 3. Horizontal Extent: 8.7 mm. 4. Ulceration: Not present. 5. Mitotic Rate: Modest. 6. Margins: Melanoma approaches to within 2.4 mm. of the nine o'clock lateral margin. The deep margin is clear by 3.0 mm., the three o'clock lateral margin and tips are clear by greater than 5.0 mm. 7. Angiolymphatic Invasion: Not seen. 8. Regression: Not seen. 9. Tumor Infiltrating Lymphocytes: Abundant. 10. Satellite: Not seen. B. 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 -- DEPARTMENT OF PATHOLOGY, [address] [place] [address] [facility] Permit #[id number] Olivier Abdul M.D. Beauty Advisor Dir sami -- -- RUN DATE: 06/12/09 [facility] NMI LIVE PAGE 2 RUN TIME: 1313 Specimen Inquiry RUN USER: INTERFACE -- Name: RUSS MORRISON Status: REG REF Re06/04/09 Age/Sex: 79/M Unit#: [id number] Location: [facility] : 30 -- -- CONTINUED -- DIAGNOSIS (Continued) 1. Radial span: 7.0 mm. C. TNM Histopathologic Stage: pT1NX. COMMENT There is a superficial area of acute inflammatory exudate within the stratum corneum, however the epidermal layer appears intact. This is interpreted as an area of secondary excoriation with associated inflammation rather than true ulceration by tumor of the epidermis. An HMB-45 stain was performed with appropriate controls and supports the above rendered diagnosis. A Melan-A stain is pending. Dr. Pop has reviewed this case and concurs. ADDENDUM Addendum #1 Entered: 06/12/09 An immunohistochemical stain for Melan-A is performed with appropriate controls. The levels with the Melan-A stain demonstrate a few nests of invasive melanoma into the reticular dermis to a depth of up to 0.72 mm. The overall stage of this neoplasm remains unchanged. Addendum Review (signature on file) HERVE POZO MD 06/12/09 -- Signed Electronically by: HERVE POZO MD 06/10/09 1622 -- -- DEPARTMENT OF PATHOLOGY, [address] [place] [address] [facility] Permit #[id number] Olivier Abdul M.D. Beauty Advisor Dir gallardo -- 88 A metabolite of Naproxen, O-desmethylnaproxen, has been shown to interfere with the [place] method for measuring total bilirubin. Samples from patients who have taken Naproxen have shown spurious elevation in total bilirubin levels. 89 Please note: The following may produce a false positive D Dimer test: - Rheumatoid factor greater than 60 IU/ml - Plasma hemoglobin greater than 0.05 gm/dl - Bilirubin greater than 50 mg/dl - Lipids greater than 1000 mg/dl - FDP greater than 20 ug/ml . 90 Recommended INR for Patients on Oral Anticoagulants Prophylaxis 2.0 - 3.0 Treatment of thrombosis 2.0 - 3.0 Prevention of embolism 2.0 - 3.0 Prevention of embolism from prosthetic heart valves 2.5 - 3.5 91 ATTENTION EFFECTIVE 08/15/08, THE IMPLEMENTATION OF NEW COAGULATION ANLAYZERS HAS CAUSED A SIGNIFICANT DIFFERENCE FOR PROTIME RESULTS IN SECONDS. THEREFORE, DIAGNOSIS,TREATMENT,AND THERAPY MUST BE BASED ON THE INR VALUE ONLY. 92 PLEASE NOTE NEW REFERENCE RANGE EFFECTIVE 08. 93 Anion gap measurement may be of limited value in the presence of any alkalosis, especially in a combined acid base disorder. . 94 Note change in reference range as of 11/24/07. The change was based on recommendations from the [employer]. 95 Please note change in reference range effective 07 . 96 A metabolite of Naproxen, O-desmethylnaproxen, has been shown to interfere with the Jendrassik-[place] method for measuring total bilirubin. Samples from patients who have taken Naproxen have shown spurious elevation in total bilirubin levels. 97 Because ethnic data is not always readily available, this report includes an eGFR for both -Americans and non- Americans. The National Kidney Disease Education Program (NKDEP) does not endorse the use of the MDRD equation for patients that are not between the ages of 18 and 70, are , have extremes of body size, muscle mass, or nutritional status, or are non- or non-. According to the National Kidney Foundation, irrespective of diagnosis, the stage of the disease is based on the level of kidney function: Stage Description GFR(mL/min/1.73 m(2)) 1 Kidney damage with normal or decreased GFR 90 2 Kidney damage with mild decrease in GFR 60-89 3 Moderate decrease in GFR 30-59 4 Severe decrease in GFR 15-29 5 Kidney failure <15 (or dialysis) 98 New Reference Range and Interpretation effective 01/06/2002 TnI (ng/ml) INTERPRETATION Less Than 0.06 ng/mL NOT SUPPORTIVE OF DIAGNOSIS OF [place] 0.06 - 0.50 ng/ml INDETERMINATE: SUGGEST SERIAL STUDIES IF CLINICALLY INDICATED. Greater than 0.5 ng/mL CONSISTENT WITH DIAGNOSIS OF [place] . 99 New Reference Range and Interpretation effective 01/06/2002 TnI (ng/ml) INTERPRETATION Less Than 0.06 ng/mL NOT SUPPORTIVE OF DIAGNOSIS OF TN 0.06 - 0.50 ng/ml INDETERMINATE: SUGGEST SERIAL STUDIES IF CLINICALLY INDICATED. Greater than 0.5 ng/mL CONSISTENT WITH DIAGNOSIS OF [place] . 100 Anion gap measurement may be of limited value in the presence of any alkalosis, especially in a combined acid base disorder. . 101 Note change in reference range as of 11/24/07. The change was based on recommendations from the [employer]. 102 Please note change in reference range effective 07 . 103 A metabolite of Naproxen, O-desmethylnaproxen, has been shown to interfere with the Jendrassik-Winston method for measuring total bilirubin. Samples from patients who have taken Naproxen have shown spurious elevation in total bilirubin levels. 104 Because ethnic data is not always readily available, this report includes an eGFR for both -Americans and non- Americans. The National Kidney Disease Education Program (NKDEP) does not endorse the use of the MDRD equation for patients that are not between the ages of 18 and 70, are , have extremes of body size, muscle mass, or nutritional status, or are non- or non-. According to the National Kidney Foundation, irrespective of diagnosis, the stage of the disease is based on the level of kidney function: Stage Description GFR(mL/min/1.73 m(2)) 1 Kidney damage with normal or decreased GFR 90 2 Kidney damage with mild decrease in GFR 60-89 3 Moderate decrease in GFR 30-59 4 Severe decrease in GFR 15-29 5 Kidney failure <15 (or dialysis) 105 Anion gap measurement may be of limited value in the presence of any alkalosis, especially in a combined acid base disorder. . 106 Note change in reference range as of 11/24/07. The change was based on recommendations from the [employer]. 107 Please note change in reference range effective 07 . 108 A metabolite of Naproxen, O-desmethylnaproxen, has been shown to interfere with the Jendrassik-Winston method for measuring total bilirubin. Samples from patients who have taken Naproxen have shown spurious elevation in total bilirubin levels. 109 Because ethnic data is not always readily available, this report includes an eGFR for both -Americans and non- Americans. The National Kidney Disease Education Program (NKDEP) does not endorse the use of the MDRD equation for patients that are not between the ages of 18 and 70, are , have extremes of body size, muscle mass, or nutritional status, or are non- or non-. According to the National Kidney Foundation, irrespective of diagnosis, the stage of the disease is based on the level of kidney function: Stage Description GFR(mL/min/1.73 m(2)) 1 Kidney damage with normal or decreased GFR 90 2 Kidney damage with mild decrease in GFR 60-89 3 Moderate decrease in GFR 30-59 4 Severe decrease in GFR 15-29 5 Kidney failure <15 (or dialysis) 110 * SERUM LEVELS OF PSA MEASURED USING THE [employer] ACCESS HYBRITECH IMMUNOASSAY SHOULD NOT BE INTERPRETED ABSOLUTE EVIDENCE OF THE PRESENCE OR ABSENCE OF DISEASE. THE PSA VALUE SHOULD BE USED IN CONJUNCTION WITH OTHER PERTINENT CLINICAL DIAGNOSTIC PROCEDURES. 111 CHOLESTEROL INTERPRETATION: Desirable: Less than 200 MG/DL Borderline-High Risk: 200-239 MG/DL High-Risk: 240 MG/DL and over 112 HDL INTERPRETATION: Undesirable: High Risk: Less than 40 MG/DL Desirable: Low Risk: Greater than 60 MG/DL 113 LDL INTERPRETATION: Low Risk Optimal Level: LDL Less than 100 MG/DL Near or Above Optimal: LDL 100-129 MG/DL Borderline High Risk: LDL 130-159 MG/DL High Risk: LDL 160-189 MG/DL Very High Risk: LDL Greater than 189 MG/DL 114 Anion gap measurement may be of limited value in the presence of any alkalosis, especially in a combined acid base disorder. . 115 Note change in reference range as of 11/24/07. The change was based on recommendations from the [employer]. 116 Please note change in reference range effective 07 . 117 Lymphopenia % 118 NILDA VALUE=2.01 ( OF 03/11/07 Recommended INR for Patients on Oral Anticoagulants Prophylaxis 2.0 - 3.0 Treatment of thrombosis 2.0 - 3.0 Prevention of embolism 2.0 - 3.0 Prevention of embolism from prosthetic heart valves 2.5 - 3.5 119 PLEASE NOTE NEW REFERENCE RANGE EFFECTIVE 07. 120 CONSISTENT WITH PREVIOUS RESULTS * SERUM LEVELS OF PSA MEASURED USING THE [employer] ACCESS HYBRITECH IMMUNOASSAY SHOULD NOT BE INTERPRETED ABSOLUTE EVIDENCE OF THE PRESENCE OR ABSENCE OF DISEASE. THE PSA VALUE SHOULD BE USED IN CONJUNCTION WITH OTHER PERTINENT CLINICAL DIAGNOSTIC PROCEDURES. Procedures Date CPT Code Description Status 11/18/2016 96829 ECHO Transthoracic, Real-Time 2D With Doppler And Color Completed Flow 10/23/2016 93393 EKG Tracing & Interpretation Completed 10/25/2015 68820 EKG Tracing & Interpretation Completed 09/28/2014 71356 EKG Tracing & Interpretation Completed 08/03/2013 84773 EKG Tracing & Interpretation Completed 07/21/2012 06733 EKG Tracing & Interpretation Completed 11/13/2010 Bone Mineral Density Test Completed 01/17/2009 97757 Holter Monitor Interpretation Completed 01/13/2009 29413 ECHO Transthorasic Realtime 2D W Doppler & Color Completed Flow Hosp Encounters Type Date Location Provider CPT E/M Dx Office Visit 03/09/2017 [facility] Ced Brian, 95892 R53.83 3:20p - Prachi Aguayo,FACP C61 Z23 Office Visit 01/05/2017 1:00p [facility] Ced Brian, 61167 Z00.01 - Prachi Aguayo,FACP I48.4 I25.810 C61 R73.01 Z23 Office Visit 12/23/2016 11:15a [facility] Js Whitlock, 90197 I25.810 Haider Aguayo I48.4 I10 Office Visit 12/11/2016 11:00a [facility] Ced Brian, 21416 L03.116 - [place] Keven Aguayo,FACP Office Visit 10/23/2016 2:30p [facility] Lynnette Whitlock, 85780 I25.810 Haider Aguayo I10 I48.4 Office Visit 10/25/2015 10:15a [facility] Js Whitlock 91198 I10 M.Joanie I25.810 Office Visit 01/04/2015 11:00a [facility] [place] [address] H26.9 J06.9 I25.10 C61 R73.01 E78.5 I69.00 Office Visit 09/28/2014 11:00a [facility] NOAH Dooley [id number] 401.1 414.01 414.02 436 Office Visit 08/01/2014 3:00p [facility] - Pedro Santiago, [employer]ER [address] 465.9 Office Visit 08/03/2013 11:30a [facility] Joanie Kamlesh, 73148 414.01 [facility] M.D. 414.02 401.1 Office Visit 06/29/2013 11:00a [facility] Rhonda Wood, N.P. 56652 414.9 - [place] 728.87 373.11 380.4 Office Visit 07/21/2012 1:45p [facility] JairoMarlon Whitlock, 65741 414.9 [facility] M.DMarlon 414.02 436 Office Visit 05/10/2012 1:30p [facility] Rhonda Wood, N.P. 90898 252.02 - [place] 428.0 Office Visit 03/03/2012 11:30a [facility] Rhonda Wood, N.P. 71844 V04.81 - [place] 784.0 Office Visit 05/07/2011 2:40p [facility] Ced D. [place], 78125 252.02 - Prachi Aguayo,FACP 784.49 414.01 Office Visit 01/21/2011 1:20p DO Not Use [employer] [facility] At [facility], 47720 682.6 Summertondiogenes Aguayo,FACP 252.02 Office Visit 01/12/2011 1:00p DO Not Use [facility] [facility] 60447 682.6 Summertondiogenes Aguayo,FACP 453.41 252.02 Office Visit 11/06/2010 11:30a DO Not Use [employer] Employee At [facility], 02666 252.00 Jose Aguayo,FACP 268.9 Office Visit 10/15/2010 2:00p DO Not Use [employer] Employee At [facility], 80683 V70.0 Jose Aguayo,FACP 414.01 790.21 185 V77.1 Office Visit 04/16/2010 1:00p DO Not Use [employer] Employee At [facility] 11708 790.21 Jose Aguayo,FACP 414.01 272.4 V12.59 Office Visit 02/17/2010 10:40a DO Not Use [employer] Employee At Nahid Coronado M.D. 71418 706.2 [facility] Office Visit 10/21/2009 10:00a DO Not Use [employer] Employee At Ced Brian, 91801 185 Summertondiogenes Aguayo,FACP 414.01 272.4 Office Visit 08/28/2009 1:20p DO Not Use [employer] Employee At Thomas Koehler, 40627 465.9 [place] M.DMarlon Office Visit 08/02/2009 11:40a DO Not Use [facility], 61615 414.9 Jose M.DMarlon 428.0 414.01 438.9 782.3 272.4 602.9 787.6 Office Visit 07/02/2009 2:00p DO Not Use Hatchery Employee At [facility], 24931 172.9 Summertondiogenes M.DMarlon 414.9 428.0 414.01 435.8 401.1 438.9 782.3 272.4 600.21 Office Visit 01/23/2009 11:20a DO Not Use Hatchery Employee At Naheed Bhatia, 72734 780.2 Jose Davenport.Joanie V04.81 Office Visit 01/14/2009 1:45a [facility], Darrell Arias, 03647 786.2 Hospitalists Oliv[place] 780.09 414.9 428.0 429.9 Office Visit 01/13/2009 12:15a [facility] Ced Brian, 83829 780.2 Assoc, Hospitalists MTim Hospitalist 414.9 Office Visit 12/24/2008 1:00p DO Not Use [employer] Employee At Naheed Bhatia, 37734 401.1 [place] M.DMarlon 438.9 782.3 414.02 Office Visit 09/20/2008 1:00p DO Not Use [facility] Employee At [facility], 56002 401.1 [place] M.D. 272.4 438.9 782.3 Office Visit 06/19/2008 11:40a DO Not Use [employer] Employee At Naheed Bhatia, 84198 401.1 [place] M.D. 272.4 438.9 787.1 600.21 782.3 Office Visit 03/15/2008 1:30p DO Not Use Hatcher[employer] Employee At Naheed Bhatia, 86798 401.1 [facility] Olivier 272.4 438.9 787.1 600.21 Office Visit 02/21/2008 2:30p DO Not Use [place] [address] 681.9 [facility] Office Visit 02/07/2008 10:00a DO Not Use [place] [address] 681.9 [facility] Office Visit 12/13/2007 9:00a DO Not Use Hatchery Employee At Naheed Bhatia M.D. 20774 401.1 [facility] 272.4 438.9 787.1 Plan of Care Future Appointment(s):04/16/2017 1:40 pm - Ced Brian M.D.,FACP at [facility] - [address]/09/2017 - Ced Brian M.D.,FACPR53.83 Other fatigueComments:There is concern that patient is on 3 antiandrogen drugs and 2 alpha blockers, this may be excessivemedication treatment. Physically, you look well. Advised bloodwork be completed today or tomorrow toget results soon.C61 Malignant neoplasm of prostateComments:Discussed prostate cancer treatment should be handled by one provider.Z23 Encounter for immunization
[2017-04-02 23:27] LABS: ABS Basophils 0.1 10^3/ul (0-0.2); ABS Eosinophils 0.3 10^3/ul (0-0.6); ABS Lymphocytes 1.3 10^3/ul (1.0-4.8); ABS Monocytes 0.9 10^3/ul (0-0.8); ABS Nucleated RBC 0.01 10^3/ul; Eosinophil % 4.3 % (0-6); Hematocrit 39 % (42-52); Hemoglobin 13.3 g/dl (14.0-18.0); Lymphocyte % 17.1 % (25-47); Mean Corpuscular HGB Conc 34 g/dl (31-36); Mean Corpuscular Hemoglobin 32 pg (27-31); Mean Corpuscular Volume 94 fL (80-94); Mean Platelet Volume 8 um3 (7.4-10.4); Nucleated Red Blood Cells % 0.1; Platelet Count 187 10^3/ul (150-450); Red Blood Count 4.12 10^6/ul (4.0-5.4); Red Cell Distribution Width 15 % (10.5-15); White Blood Count 7.5 10^3/ul (3.5-10.8)
[2017-04-02 23:37] LABS: INR 1.23 (0.77-1.02)
--- NOTE | 2017-04-03 00:47 | ED ---
Tejas Gonzales Gabriel, scribed for Tony Ozuna on 04/02/17 at 2257 . GI/ HPI - HPI Summary HPI Summary: This patient is a 87 year old M presenting to [facility] accompanied by his with a chief complaint of blood in his stool with a BM earlier tonight. The patient describes the blood as bright red. Patient denies n/v, fever, and abdominal pain. Patient is on ASA and eliquis. He had a CVA in 2001 and has a history of hemorrhoids. - History of Current Complaint Chief Complaint: EDRectalPain Time Seen by Provider: 04/02/17 22:47 Stated Complaint: RECTAL BLEEDING Hx Obtained From: Patient Onset/Duration: Started Hours Ago - earlier tonight, Still Present Timing: Constant Severity: Moderate Current Severity: Moderate Pain Intensity: 0 Associated Signs and Symptoms: Positive: Blood w/Stool, Other: - n/v, fever, abd pain - Allergy/Home Medications Allergies/Adverse Reactions: Allergies Allergy/AdvReac Type Severity Reaction Status Date / Time Meclizine Allergy Mild Unknown Verified 01/30/15 09:38 Reaction Details PMH/Surg Hx/FS Hx/Imm Hx Endocrine/Hematology History: Reports: Hx Anticoagulant Therapy Cardiovascular History: Reports: Hx Coronary Artery Disease - ON MED, Hx Hypertension, Other Cardiovascular Problems/Disorders - SEES DR. SERRATO YEARLY Respiratory History: Denies: Hx Asthma Sensory History: Reports: Hx Contacts or Glasses - GLASSES Denies: Hx Hearing Aid Opthamlomology History: Reports: Hx Contacts or Glasses - GLASSES - Cancer History Cancer Type, Location and Year: prostate - Surgical History Surgery Procedure, Year, and Place: open heart, r carotid artery Hx Anesthesia Reactions: No - Immunization History Date of Influenza Vaccine: 01/2017 Infectious Disease History: No Infectious Disease History: Denies: Traveled Outside the [place] in Last 30 Days - Family History Known Family History: Negative: Hypertension - Social History Occupation: Retired Alcohol Use: Daily Alcohol Amount: 1 DRINK A DAY Substance Use Type: Reports: None Smoking Status (MU): Former Smoker Amount Used/How Often: 1-2 PPD X 28 YRS. Review of Systems Negative: Fever Positive: Other - rectal bleeding . Negative: Abdominal Pain, Vomiting, Nausea All Other Systems Reviewed And Are Negative: Yes Physical Exam - Summary Physical Exam Summary: Appearance: Well appearing, no pain distress Skin: warm, dry, reflects adequate perfusion Head/face: normal Eyes: EOMI, SACHA ENT: normal Neck: supple, non-tender Respiratory: CTA, breath sounds present Cardiovascular: RRR, pulses symmetrical Abdomen: non-tender, soft Bowel: present Rectum: External hemorrhoids with blood, no active bleeding present. Musculoskeletal: normal, strength/ROM intact Neuro: normal, sensory motor intact, A&Ox3 Triage Information Reviewed: Yes Vital Signs On Initial Exam: Initial Vitals Temp Pulse Resp BP Pulse Ox 97.6 F 100 16 131/90 98 04/02/17 22:28 04/02/17 22:28 04/02/17 22:28 04/02/17 22:28 04/02/17 22:28 Vital Signs Reviewed: Yes - Rupali Coma Scale Coma Scale Total: 15 Diagnostics - Vital Signs Vital Signs Temp Pulse Resp BP Pulse Ox 04/02/17 22:28 97.6 F 100 16 131/90 98 - Laboratory Lab Results: Lab Results 04/02/17 04/02/17 04/02/17 Range/Units 23:15 23:15 23:15 WBC 7.5 (3.5-10.8) 10^3/ul RBC 4.12 (4.0-5.4) 10^6/ul Hgb 13.3 L (14.0-18.0) g/dl Hct 39 L (42-52) % MCV 94 (80-94) fL MCH 32 H (27-31) pg MCHC 34 (31-36) g/dl RDW 15 (10.5-15) % Plt Count 187 (150-450) 10^3/ul MPV 8 (7.4-10.4) um3 Neut % (Auto) 66.1 (38-83) % Lymph % (Auto) 17.1 L (25-47) % [place] % (Auto) 11.8 H (1-9) % Eos % (Auto) 4.3 (0-6) % Baso % (Auto) 0.7 (0-2) % Absolute Neuts (auto) 5.0 (1.5-7.7) 10^3/ul Absolute Lymphs (auto) 1.3 (1.0-4.8) 10^3/ul Absolute Monos (auto) 0.9 H (0-0.8) 10^3/ul Absolute Eos (auto) 0.3 (0-0.6) 10^3/ul Absolute Basos (auto) 0.1 (0-0.2) 10^3/ul Absolute Nucleated RBC 0.01 10^3/ul Nucleated RBC % 0.1 INR (Anticoag Therapy) 1.23 H (0.77-1.02) APTT 35.8 (26.0-36.3) seconds Sodium 135 (133-145) mmol/L Potassium 3.9 (3.5-5.0) mmol/L Chloride 101 (101-111) mmol/L Carbon Dioxide 26 (22-32) mmol/L Anion Gap 8 (2-11) mmol/L BUN 22 (6-24) mg/dL Creatinine 1.17 (0.67-1.17) mg/dL Est GFR ( Amer) 75.8 (>60) Est GFR (Non-Af Amer) 59.0 (>60) BUN/Creatinine Ratio 18.8 (8-20) Glucose 155 H (70-100) mg/dL Calcium 10.8 H (8.6-10.3) mg/dL Total Bilirubin 0.40 (0.2-1.0) mg/dL AST 26 (13-39) U/L ALT 21 (7-52) U/L Alkaline Phosphatase 115 H (34-104) U/L Total Protein 6.5 (6.4-8.9) g/dL Albumin 3.6 (3.2-5.2) g/dL Globulin 2.9 (2-4) g/dL Albumin/Globulin Ratio 1.2 (1-3) Result Diagrams: 04/02/17 23:15 04/02/17 23:15 Lab Statement: Any lab studies that have been ordered have been reviewed, and results considered in the medical decision making process. GIGU Course/Dx - Course Assessment/Plan: This patient is a 87 year old M presenting to [facility] accompanied by his with a chief complaint of blood in his stool with a BM earlier tonight. The patient describes the blood as bright red. Patient denies n /v, fever, and abdominal pain. Bloodwork obtained. Patient will be discharged with follow up from Dr. Lu, surgery in 3 days for repair. The patient is agreeable with this plan. - Diagnoses Differential Diagnoses - Male: Diverticulosis, Hemorrhoids, Rectal Fissure Provider Diagnoses: Bleeding hemorrhoids Discharge - Discharge Plan Condition: Stable Disposition: HOME Patient Education Materials: Rectal Bleeding (ED) Referrals: Ced Brian MD [Primary Care Provider] - Trevon Lu MD [Medical Doctor] - 3 Days Additional Instructions: Return to emergency department for new or worsening symptoms. The documentation as recorded by the Tejas zepeda Gabriel accurately reflects the service I personally performed and the decisions made by Laith domingo Emmanuel.
[2017-04-03 00:48] VITALS: BP 133/79
== END 2017-04-03 01:00 | disposition home or self-care (01) ==
LOC: ED 22:23
DX: K64.9 Unspecified hemorrhoids (principal); R50.9 Fever, unspecified; R11.2 Nausea with vomiting, unspecified; R10.9 Unspecified abdominal pain; Z79.01 Long term (current) use of anticoagulants; Z86.79 Personal history of other diseases of the circulatory system; Z87.891 Personal history of nicotine dependence
CPT/HCPCS: 36415; 80053; 85025; 85610; 85730; 99282